=== PATIENT | female | born 1930 | race Caucasian/White ===

== ENCOUNTER → 2016-08-31 | Outpatient (CLI) | payer MEDICARE ==
[~2016-08-31] MED LIST: ACYCLOVIR800 MG PO; ADVAIR 250/501 EA INH; ALBUTEROL 3 ML 33 ML INH; ALBUTEROL0.09 MG/A2 IH; ALBUTEROL2.5 MG/0.5 INH; ASPIRIN ADULT L81 M2 PO; ASPIRIN NON-IR325 MG PO; ATROVENT I0.5 MG/2.5 INH; BACTRIM DS 8001 TA1 PO; BREO ELLIPTA 21 EACH IH; BUMETANIDE0.5 MG PO; BUMETANIDE1 MG PO; BUMEX1 MG PO; BUMEX2.5 MG/10 PO; CARDIZEM CD120 M2 PO; CARDIZEM120 MG PO; CIPRO250 MG PO; CIPROFLOXACIN500 MG PO; CORDROL20 MG PO; COREG12.5 MG PO; COREG3.125 MG PO; COREG6.25 MG PO; COUMADIN2.5 M1 PO; COUMADIN5 M2 PO; COZAAR100 MG PO; COZAAR50 M1 PO; D-1000 185 MG-11 TAB PO; DIFLUCAN50 MG PO; DOXYCYCLINE100 M3 PO; DOXYCYCLINE100 M4 PO; ELIQUIS5 M1 PO; Ecotrin325 MG PO; FLAXSEED OIL1 CAP; HYDROCHLOROTHIA25 MG; HYDROCODONE BIT1 T11 PO; KEFLEX500 MG PO; LASIX40 MG PO; LOPRESSOR100 MG PO; LORATADINE10 MG PO; MACROBID100 M1 PO; MAGNESIUM500 MG PO; NASONEX0.05 MG/AC NAS; NEURONTIN300 MG PO; NORVASC10 MG PO; OMEGA 31000 MG PO; OMEGA-3 FISH1000 M1 PO; PREDNICOT10 MG PO; PROPAFENONE HC150 MG PO; RYTHMOL150 M1 PO; SEPTRA DS 800 M1 TAB PO; TAGAMET300 MG PO; TOPROL-XL200 MG PO; ULTRAM50 MG PO; VIBRAMYCIN100 MG PO; VITAMIN D PO; VITAMIN D-32000 UNI1 PO; VITAMIN D31000 IU PO; XANAX PO; ZANTAC 150150 MG PO; ZITHROMAX250 MG PO; ZOFRAN4 MG PO; ZOLOFT25 MG PO; ZOVIRAX800 MG PO; Zofran4 MG PO; [UNRECOGNIZED DRUG - OTHER] INH
[2016-08-31 14:38] LABS: INTERNATIONAL NORM RATIO 2.3 (2.0-3.5); PROTHROMBIN TIME 26.2 SECONDS (9.0-12.4)
== END | disposition home or self-care (01) ==
LOC: LAB 13:35
PROVIDERS: Family Medicine
DX: I48.91 Unspecified atrial fibrillation (principal); Z79.01 Long term (current) use of anticoagulants

== ENCOUNTER → 2016-11-07 | Outpatient (CLI) | payer MEDICARE ==
[2016-11-07 10:40] LABS: BILIRUBIN NEGATIVE (NEGATIVE); BLOOD NEGATIVE (NEGATIVE); CLARITY SL CLOUDY (CLEAR); COLOR YELLOW (YELLOW); GLUCOSE NEGATIVE (NEGATIVE); KETONE NEGATIVE (NEGATIVE); LEUKO ESTERASE 2+ (NEGATIVE); NITRITE NEGATIVE (NEGATIVE); PH 5.5 (5.0-9.0); PROTEIN NEGATIVE (NEGATIVE); UROBILINOGEN 0.2 E.U./dl (0.2-1.0)
[2016-11-07 10:47] LABS: BASO % 0.5 % (0.0-1.0); EOS # 0.4 10*3/uL (0.0-0.4); EOS % 5.3 % (1.0-4.0); HEMATOCRIT 36.9 % (37.0-47.0); LYMPH # 2.2 10*3/uL (1.3-4.4); LYMPH % 32.4 % (27.0-41.0); MEAN CELL VOLUME 88.9 fl (81.0-99.0); MEAN CORPUSCULAR HGB 28.9 pg (27.0-31.0); MEAN CORPUSCULAR HGB CONC 32.5 g/dl (33.0-37.0); MEAN PLATELET VOLUME 10.4 fl (9.6-12.3); MONO # 0.8 10*3/uL (0.1-1.0); MONO % 11.5 % (3.0-9.0); NEUT # 3.3 10*3/uL (2.3-7.9); NEUT % 50.1 % (47.0-73.0); PLATELET COUNT AUTOMATED 245 10*3/uL (130-400); RED BLOOD COUNT 4.15 10*6/uL (4.10-5.10); WHITE BLOOD COUNT 6.6 10*3/uL (4.8-10.8)
[2016-11-07 10:49] LABS: URINE TP/CRE RATIO 0.1 (<0.21)
[2016-11-07 11:08] LABS: ALBUMIN 3.3 gm/dl (3.1-4.5); BACTERIA 2+; EPITHELIAL CELLS 15-20; MAGNESIUM 2.1 mg/dL (1.5-2.1); PHOSPHOROUS 2.1 mg/dL (2.5-4.9); POTASSIUM 4.4 mmol/L (3.5-5.1); WBC 16-20 wbc/hpf (0-5)
[2016-11-07 11:51] LABS: PTH INTACT 129.4 pg/mL (14.0-72.0); VITAMIN D, 25-HYDROXY 28.6 ng/mL (30-100)
== END | disposition home or self-care (01) ==
LOC: LAB 10:11
PROVIDERS: Internal Medicine Nephrology
DX: N18.4 Chronic kidney disease, stage 4 (severe) (principal); E55.9 Vitamin D deficiency, unspecified; N25.81 Secondary hyperparathyroidism of renal origin

== ENCOUNTER 2016-12-17 16:53 | Emergency (ER) | payer MEDICARE ==
[~2016-12-17] VITALS: Ht 152.4 cm; Wt 69.4 kg
[2016-12-17 17:22] LABS: BILIRUBIN NEGATIVE (NEGATIVE); BLOOD 3+ (NEGATIVE); CLARITY CLEAR (CLEAR); COLOR YELLOW (YELLOW); GLUCOSE NEGATIVE (NEGATIVE); KETONE NEGATIVE (NEGATIVE); LEUKO ESTERASE 2+ (NEGATIVE); NITRITE NEGATIVE (NEGATIVE); PH 5.5 (5.0-9.0); PROTEIN NEGATIVE (NEGATIVE); SPECIFIC GRAVITY <= 1.005 (1.005-1.030); UROBILINOGEN 0.2 E.U./dl (0.2-1.0)
[2016-12-17 17:28] LABS: BACTERIA 1+; EPITHELIAL CELLS 16-20; RBC 16-20 rbc/hpf (0-2); URINE REFLEX COMMENT YES (NO)
[2016-12-17 17:35] LABS: BASO # 0.1 10*3/uL (0.0-0.1); BASO % 0.7 % (0.0-1.0); EOS # 0.2 10*3/uL (0.0-0.4); EOS % 2.3 % (1.0-4.0); HEMATOCRIT 36.9 % (37.0-47.0); HEMOGLOBIN 12.2 g/dl (12.0-16.0); LYMPH # 2.2 10*3/uL (1.3-4.4); LYMPH % 26.1 % (27.0-41.0); MEAN CELL VOLUME 88.5 fl (81.0-99.0); MEAN CORPUSCULAR HGB 29.3 pg (27.0-31.0); MEAN CORPUSCULAR HGB CONC 33.1 g/dl (33.0-37.0); MEAN PLATELET VOLUME 10.3 fl (9.6-12.3); MONO # 0.8 10*3/uL (0.1-1.0); MONO % 9.7 % (3.0-9.0); NEUT # 5.1 10*3/uL (2.3-7.9); NEUT % 61.1 % (47.0-73.0); PLATELET COUNT AUTOMATED 231 10*3/uL (130-400); RED BLOOD COUNT 4.17 10*6/uL (4.10-5.10); RED CELL DISTRI WIDTH 14.2 % (0-14.5); WHITE BLOOD COUNT 8.4 10*3/uL (4.8-10.8)
[2016-12-17 17:42] LABS: INTERNATIONAL NORM RATIO 2.2 (2.0-3.5)
[2016-12-17 17:50] LABS: ALBUMIN 3.6 gm/dl (3.1-4.5); BILIRUBIN, TOTAL 0.4 mg/dl (0.2-1.0); POTASSIUM 4.6 mmol/L (3.5-5.1); TOTAL PROTEIN 7.2 gm/dL (6.4-8.2)
[2016-12-17] MEDS ORDERED: AMINOPHYLLIN200 MG PO (18:34)
[2016-12-17] MEDS ORDERED: DITROPAN XL5 MG PO (18:34)
== END 2016-12-17 19:04 | disposition home or self-care (01) ==
LOC: ED 16:53
PROVIDERS: Registered Nurse
DX: N30.00 Acute cystitis without hematuria (principal); N18.4 Chronic kidney disease, stage 4 (severe); Z90.49 Acquired absence of other specified parts of digestive tract; Z79.01 Long term (current) use of anticoagulants; Z79.82 Long term (current) use of aspirin; Z79.899 Other long term (current) drug therapy; Z88.2 Allergy status to sulfonamides; Z88.6 Allergy status to analgesic agent

== ENCOUNTER → 2016-12-23 | Outpatient (CLI) | payer MEDICARE ==
[~2016-12-23] MED LIST changes: +AMINOPHYLLIN200 MG PO; +DITROPAN XL5 MG PO
[2016-12-23 10:41] LABS: INTERNATIONAL NORM RATIO 1.8 (2.0-3.5); PROTHROMBIN TIME 19.9 SECONDS (9.0-12.4)
== END | disposition home or self-care (01) ==
LOC: LAB 09:33
PROVIDERS: Family Medicine
DX: I48.91 Unspecified atrial fibrillation (principal); Z79.01 Long term (current) use of anticoagulants

== ENCOUNTER 2017-01-06 06:13 | Emergency (ER) | payer MEDICARE ==
[~2017-01-06] VITALS: Ht 152.4 cm; Wt 68.0 kg
[2017-01-06 06:38] LABS: BASO # 0.1 10*3/uL (0.0-0.1); BASO % 0.9 % (0.0-1.0); EOS # 0.2 10*3/uL (0.0-0.4); EOS % 4.1 % (1.0-4.0); LYMPH # 2.1 10*3/uL (1.3-4.4); LYMPH % 35.8 % (27.0-41.0); MEAN CELL VOLUME 89.8 fl (81.0-99.0); MEAN CORPUSCULAR HGB 29.1 pg (27.0-31.0); MEAN CORPUSCULAR HGB CONC 32.4 g/dl (33.0-37.0); MEAN PLATELET VOLUME 10.2 fl (9.6-12.3); MONO # 0.5 10*3/uL (0.1-1.0); MONO % 9.1 % (3.0-9.0); NEUT # 2.9 10*3/uL (2.3-7.9); NEUT % 49.8 % (47.0-73.0); PLATELET COUNT AUTOMATED 222 10*3/uL (130-400); RED BLOOD COUNT 4.12 10*6/uL (4.10-5.10); RED CELL DISTRI WIDTH 13.9 % (0-14.5); WHITE BLOOD COUNT 5.8 10*3/uL (4.8-10.8)
[2017-01-06 06:48] LABS: INTERNATIONAL NORM RATIO 2.1 (2.0-3.5); PROTHROMBIN TIME 23.8 SECONDS (9.0-12.4)
[2017-01-06 06:59] LABS: ALBUMIN 3.2 gm/dl (3.1-4.5); ALKALINE PHOSPHATASE 159 U/L (45-117); BILIRUBIN, TOTAL 0.5 mg/dl (0.2-1.0); BUN 25 mg/dl (7-24); C-REACTIVE PROTEIN 0.68 MG/DL (0-0.3); CARBON DIOXIDE 24 mmol/L (21-32); CHLORIDE 106 mmol/L (98-107); EST GLOM FILT AFRICAN AMERICAN 28 ml/min; GLUCOSE 91 mg/dL (65-99); MAGNESIUM 2.2 mg/dL (1.5-2.1); SGOT/AST 25 IU/L (3-35); SGPT/ALT 21 U/L (12-78); SODIUM 140 mmol/L (136-145); TOTAL PROTEIN 6.8 gm/dL (6.4-8.2)
[2017-01-06 07:05] LABS: TROPONIN I < 0.015 ng/ml (<0.045)
== END 2017-01-06 10:08 | disposition home or self-care (01) ==
LOC: ED 06:13
PROVIDERS: Student in an Organized Health Care Education/Training Program
DX: F41.9 Anxiety disorder, unspecified (principal); I48.91 Unspecified atrial fibrillation; I13.0 Hypertensive heart and chronic kidney disease with heart failure and stage 1 through stage 4 chronic kidney disease, or unspecified chronic kidney disease; N18.4 Chronic kidney disease, stage 4 (severe); I50.9 Heart failure, unspecified; Z90.49 Acquired absence of other specified parts of digestive tract; Z90.710 Acquired absence of both cervix and uterus; Z98.890 Other specified postprocedural states; Z79.899 Other long term (current) drug therapy; Z79.82 Long term (current) use of aspirin; Z88.2 Allergy status to sulfonamides; Z88.5 Allergy status to narcotic agent; Z88.8 Allergy status to other drugs, medicaments and biological substances

== ENCOUNTER → 2017-02-15 | Outpatient (CLI) | payer MEDICARE ==
[2017-02-15 12:31] LABS: INTERNATIONAL NORM RATIO 2.6 (2.0-3.5)
== END | disposition home or self-care (01) ==
LOC: LAB 11:01
PROVIDERS: Family Medicine
DX: I48.91 Unspecified atrial fibrillation (principal); Z79.01 Long term (current) use of anticoagulants

== ENCOUNTER → 2017-03-19 | Outpatient (CLI) | payer MEDICARE ==
[2017-03-19 14:54] LABS: BILIRUBIN NEGATIVE (NEGATIVE); BLOOD NEGATIVE (NEGATIVE); CLARITY CLEAR (CLEAR); COLOR YELLOW (YELLOW); GLUCOSE NEGATIVE (NEGATIVE); KETONE NEGATIVE (NEGATIVE); LEUKO ESTERASE 1+ (NEGATIVE); NITRITE NEGATIVE (NEGATIVE); PH 5.5 (5.0-9.0); UROBILINOGEN 0.2 E.U./dl (0.2-1.0)
[2017-03-19 14:59] LABS: BASO # 0.1 10*3/uL (0.0-0.1); BASO % 0.7 % (0.0-1.0); EOS # 0.2 10*3/uL (0.0-0.4); EOS % 2.9 % (1.0-4.0); HEMATOCRIT 36.5 % (37.0-47.0); HEMOGLOBIN 12.2 g/dl (12.0-16.0); LYMPH # 2.8 10*3/uL (1.3-4.4); LYMPH % 37.8 % (27.0-41.0); MEAN CELL VOLUME 89.9 fl (81.0-99.0); MEAN CORPUSCULAR HGB CONC 33.4 g/dl (33.0-37.0); MEAN PLATELET VOLUME 10.3 fl (9.6-12.3); MONO # 0.7 10*3/uL (0.1-1.0); MONO % 9.3 % (3.0-9.0); NEUT # 3.7 10*3/uL (2.3-7.9); NEUT % 48.9 % (47.0-73.0); PLATELET COUNT AUTOMATED 281 10*3/uL (130-400); RED BLOOD COUNT 4.06 10*6/uL (4.10-5.10); RED CELL DISTRI WIDTH 13.6 % (0-14.5); WHITE BLOOD COUNT 7.5 10*3/uL (4.8-10.8)
[2017-03-19 15:06] LABS: BACTERIA 2+; RBC 0-2 rbc/hpf (0-2); WBC 16-20 wbc/hpf (0-5)
[2017-03-19 15:27] LABS: ALBUMIN 3.3 gm/dl (3.1-4.5); CREATININE 2.13 mg/dL (0.55-1.02); MAGNESIUM 2.3 mg/dL (1.5-2.1); PHOSPHOROUS 2.9 mg/dL (2.5-4.9); POTASSIUM 4.5 mmol/L (3.5-5.1); URIC ACID 10.8 mg/dL (2.6-6.0)
[2017-03-19 16:05] LABS: PTH INTACT 117.4 pg/mL (14.0-72.0); VITAMIN D, 25-HYDROXY 30.3 ng/mL (30-100)
== END | disposition home or self-care (01) ==
LOC: LAB 14:25
PROVIDERS: Internal Medicine Nephrology
DX: N18.4 Chronic kidney disease, stage 4 (severe) (principal); E55.9 Vitamin D deficiency, unspecified; N25.81 Secondary hyperparathyroidism of renal origin; M10.09 Idiopathic gout, multiple sites

== ENCOUNTER → 2017-07-23 | Outpatient (CLI) | payer MEDICARE ==
[2017-07-23 16:05] LABS: BASO % 0.5 % (0.0-1.0); EOS # 0.2 10*3/uL (0.0-0.4); EOS % 3.1 % (1.0-4.0); HEMATOCRIT 37.2 % (37.0-47.0); LYMPH # 2.7 10*3/uL (1.3-4.4); MEAN CELL VOLUME 89.4 fl (81.0-99.0); MEAN CORPUSCULAR HGB 28.8 pg (27.0-31.0); MEAN CORPUSCULAR HGB CONC 32.3 g/dl (33.0-37.0); MEAN PLATELET VOLUME 10.7 fl (9.6-12.3); MONO # 0.9 10*3/uL (0.1-1.0); MONO % 11.4 % (3.0-9.0); NEUT # 3.8 10*3/uL (2.3-7.9); NEUT % 49.6 % (47.0-73.0); PLATELET COUNT AUTOMATED 263 10*3/uL (130-400); RED BLOOD COUNT 4.16 10*6/uL (4.10-5.10); RED CELL DISTRI WIDTH 13.8 % (0-14.5); WHITE BLOOD COUNT 7.6 10*3/uL (4.8-10.8)
[2017-07-23 16:26] LABS: ALBUMIN 3.5 gm/dl (3.1-4.5); CREATININE 2.43 mg/dL (0.55-1.02); PHOSPHOROUS 3.1 mg/dL (2.5-4.9); POTASSIUM 4.2 mmol/L (3.5-5.1); URIC ACID 10.4 mg/dL (2.6-6.0)
[2017-07-23 16:32] LABS: BILIRUBIN NEGATIVE (NEGATIVE); BLOOD TRACE-LYSED (NEGATIVE); CLARITY CLOUDY (CLEAR); COLOR YELLOW (YELLOW); GLUCOSE NEGATIVE (NEGATIVE); KETONE NEGATIVE (NEGATIVE); LEUKO ESTERASE 3+ (NEGATIVE); NITRITE NEGATIVE (NEGATIVE); PH 5.5 (5.0-9.0); SPECIFIC GRAVITY 1.015 (1.005-1.030); UROBILINOGEN 0.2 E.U./dl (0.2-1.0)
[2017-07-23 16:37] LABS: PTH INTACT 140.4 pg/mL (14.0-72.0); VITAMIN D, 25-HYDROXY 30.7 ng/mL (30-100)
[2017-07-23 16:58] LABS: BACTERIA 3+; EPITHELIAL CELLS 0-2; WBC 31-40 wbc/hpf (0-5)
== END | disposition home or self-care (01) ==
LOC: LAB 15:12
PROVIDERS: Internal Medicine Nephrology
DX: N18.4 Chronic kidney disease, stage 4 (severe) (principal); E55.9 Vitamin D deficiency, unspecified; N25.81 Secondary hyperparathyroidism of renal origin; M10.09 Idiopathic gout, multiple sites

== ENCOUNTER → 2017-10-29 | Outpatient (CLI) | payer MEDICARE | END | disposition home or self-care (01) | LOC: RAD 11:08 | DX: M16.0 Bilateral primary osteoarthritis of hip (principal) ==

== ENCOUNTER → 2017-11-20 | Outpatient (CLI) | payer MEDICARE ==
[2017-11-20 11:26] LABS: BASO # 0.1 10*3/uL (0.0-0.1); BASO % 0.8 % (0.0-1.0); BILIRUBIN NEGATIVE (NEGATIVE); BLOOD NEGATIVE (NEGATIVE); CLARITY CLEAR (CLEAR); COLOR YELLOW (YELLOW); EOS # 0.2 10*3/uL (0.0-0.4); EOS % 2.6 % (1.0-4.0); GLUCOSE NEGATIVE (NEGATIVE); HEMATOCRIT 36.3 % (37.0-47.0); HEMOGLOBIN 11.6 g/dl (12.0-16.0); KETONE NEGATIVE (NEGATIVE); LEUKO ESTERASE TRACE (NEGATIVE); LYMPH # 2.6 10*3/uL (1.3-4.4); LYMPH % 39.5 % (27.0-41.0); MEAN CELL VOLUME 91.2 fl (81.0-99.0); MEAN CORPUSCULAR HGB 29.1 pg (27.0-31.0); MEAN PLATELET VOLUME 10.4 fl (9.6-12.3); MONO # 0.7 10*3/uL (0.1-1.0); MONO % 11.2 % (3.0-9.0); NEUT % 45.4 % (47.0-73.0); NITRITE NEGATIVE (NEGATIVE); PH 5.5 (5.0-9.0); PLATELET COUNT AUTOMATED 226 10*3/uL (130-400); RED BLOOD COUNT 3.98 10*6/uL (4.10-5.10); RED CELL DISTRI WIDTH 14.1 % (0-14.5); UROBILINOGEN 0.2 E.U./dl (0.2-1.0); WHITE BLOOD COUNT 6.5 10*3/uL (4.8-10.8)
[2017-11-20 11:42] LABS: URINE CREATININE RANDOM 26.5 mg/dL
[2017-11-20 12:03] LABS: ALBUMIN 3.6 gm/dl (3.1-4.5); CREATININE 2.36 mg/dL (0.55-1.02); PHOSPHOROUS 2.9 mg/dL (2.5-4.9); POTASSIUM 4.4 mmol/L (3.5-5.1); URIC ACID 8.4 mg/dL (2.6-6.0)
[2017-11-20 12:07] LABS: BACTERIA 1+; EPITHELIAL CELLS 16-20
[2017-11-20 12:58] LABS: PTH INTACT 118.2 pg/mL (14.0-72.0); VITAMIN D, 25-HYDROXY 38.1 ng/mL (30-100)
== END | disposition home or self-care (01) ==
LOC: LAB 10:57
PROVIDERS: Internal Medicine Nephrology
DX: N18.4 Chronic kidney disease, stage 4 (severe) (principal); E55.9 Vitamin D deficiency, unspecified; N25.81 Secondary hyperparathyroidism of renal origin; M10.09 Idiopathic gout, multiple sites

== ENCOUNTER → 2018-03-19 | Outpatient (CLI) | payer MEDICARE ==
[~2018-03-19] MED LIST changes: +CYCLOBENZAPRINE5 M3 PO
[2018-03-19 10:47] LABS: HEMATOCRIT 36.9 % (37.0-47.0); HEMOGLOBIN 11.8 g/dl (12.0-16.0); MEAN CELL VOLUME 91.1 fl (81.0-99.0); MEAN CORPUSCULAR HGB 29.1 pg (27.0-31.0); MEAN PLATELET VOLUME 10.6 fl (9.6-12.3); RED BLOOD COUNT 4.05 10*6/uL (4.10-5.10); RED CELL DISTRI WIDTH 14.2 % (0-14.5); WHITE BLOOD COUNT 8.8 10*3/uL (4.8-10.8)
[2018-03-19 11:21] LABS: ALBUMIN 3.5 gm/dl (3.1-4.5); CREATININE 2.35 mg/dL (0.55-1.02); POTASSIUM 4.7 mmol/L (3.5-5.1); TOTAL PROTEIN 7.4 gm/dL (6.4-8.2)
== END | disposition home or self-care (01) ==
LOC: LAB 10:05
PROVIDERS: Family Medicine
DX: I10 Essential (primary) hypertension (principal); E78.00 Pure hypercholesterolemia, unspecified; E55.9 Vitamin D deficiency, unspecified

== ENCOUNTER → 2018-03-25 | Outpatient (CLI) | payer MEDICARE ==
[2018-03-25 13:04] LABS: BASO # 0.1 10*3/uL (0.0-0.1); BASO % 0.7 % (0.0-1.0); EOS # 0.2 10*3/uL (0.0-0.4); HEMATOCRIT 35.9 % (37.0-47.0); HEMOGLOBIN 11.7 g/dl (12.0-16.0); LYMPH # 2.6 10*3/uL (1.3-4.4); LYMPH % 38.6 % (27.0-41.0); MEAN CELL VOLUME 91.8 fl (81.0-99.0); MEAN CORPUSCULAR HGB 29.9 pg (27.0-31.0); MEAN CORPUSCULAR HGB CONC 32.6 g/dl (33.0-37.0); MEAN PLATELET VOLUME 10.8 fl (9.6-12.3); MONO # 0.5 10*3/uL (0.1-1.0); MONO % 8.1 % (3.0-9.0); NEUT # 3.3 10*3/uL (2.3-7.9); NEUT % 49.3 % (47.0-73.0); PLATELET COUNT AUTOMATED 261 10*3/uL (130-400); RED BLOOD COUNT 3.91 10*6/uL (4.10-5.10); WHITE BLOOD COUNT 6.7 10*3/uL (4.8-10.8)
[2018-03-25 13:04] LABS: BILIRUBIN NEGATIVE (NEGATIVE); BLOOD NEGATIVE (NEGATIVE); CLARITY CLEAR (CLEAR); COLOR YELLOW (YELLOW); GLUCOSE NEGATIVE (NEGATIVE); KETONE NEGATIVE (NEGATIVE); LEUKO ESTERASE 1+ (NEGATIVE); NITRITE NEGATIVE (NEGATIVE); UROBILINOGEN 0.2 E.U./dl (0.2-1.0)
[2018-03-25 13:09] LABS: BACTERIA 2+; RBC 0-2 rbc/hpf (0-2)
[2018-03-25 13:26] LABS: ALBUMIN 3.4 gm/dl (3.1-4.5); CREATININE 2.54 mg/dL (0.55-1.02); PHOSPHOROUS 2.5 mg/dL (2.5-4.9); POTASSIUM 4.4 mmol/L (3.5-5.1); URIC ACID 10.7 mg/dL (2.6-6.0)
[2018-03-25 15:21] LABS: PTH INTACT 143.9 pg/mL (18.5-88.0); VITAMIN D, 25-HYDROXY 40.9 ng/mL (30-100)
== END | disposition home or self-care (01) ==
LOC: LAB 11:53
PROVIDERS: Internal Medicine Nephrology
DX: E55.9 Vitamin D deficiency, unspecified (principal); N18.4 Chronic kidney disease, stage 4 (severe); N25.81 Secondary hyperparathyroidism of renal origin; M10.09 Idiopathic gout, multiple sites

== ENCOUNTER → 2018-05-03 | Outpatient (CLI) | payer MEDICARE | END | disposition home or self-care (01) | LOC: RAD 10:24 | DX: S60.211A Contusion of right wrist, initial encounter (principal); M19.031 Primary osteoarthritis, right wrist; M25.431 Effusion, right wrist; X58.XXXA Exposure to other specified factors, initial encounter; Y93.89 Activity, other specified; Y92.89 Other specified places as the place of occurrence of the external cause; Y99.8 Other external cause status ==

== ENCOUNTER 2018-12-30 20:06 | Inpatient (IN) | payer MEDICARE ==
[~2018-12-30] VITALS: Ht 152.4 cm; Wt 80.4 kg
--- NOTE | ~2018-12-30 | PR ---
[place], [place] PROGRESS NOTE NAME: [facility] [id number] UNIT #: [id number] ROOM: 505 DOCTOR: TY WATERS MD BIRTHDATE: [birth year] DOS: 01/04/2019 SUBJECTIVE: The patient's cough has started improving. OBJECTIVE: VITAL SIGNS: Blood pressure 138/66, heart rate of 88 beats per minute, breathing 18-22 times per minute, temperature 98 degrees Fahrenheit. GENERAL APPEARANCE: The patient is alert and oriented x 3, in no visible distress. HEENT AND NECK: Exam within normal limits. CARDIOVASCULAR SYSTEM: Heart rate is regular in rate and rhythm. S1 and S2 normally audible. LUNGS: Clear to auscultation. ABDOMEN: Soft, nontender. No obvious organomegaly. Bowel sounds are present. EXTREMITIES: Without significant cyanosis or edema. IMPRESSION AND PLAN: 1. The patient with community-acquired pneumonia, being treated with antibiotics and bronchodilators status post bronchoscopy with sputum cultures growing normal castillo. 2. Chronic atrial fibrillation with controlled heart rates. The patient anticoagulated with Coumadin. Rapid heart rate controlled with Cardizem. 3. Atrial fibrillation with rapid ventricular response, controlled with Cardizem. She is on Coreg. 4. Generalized weakness and adult failure to thrive. The patient working with physical therapy. 5. Acute exacerbation of chronic obstructive pulmonary disease, gradually improving with treatment with bronchodilators and antibiotic. TY WATERS MD CM:PNTRANS [id number] TY WATERS MD 01/05/19 0119 interface
--- NOTE | ~2018-12-30 | CON ---
[place], [place] REPORT OF CONSULTATION [id number] UN[facility] #: [id number] ROOM: 505 DOCTOR: SAM WALSH MD BIRTHDATE: [birth year] DOS: 01/03/2019 CARDIOLOGY CONSULTATION REASON FOR CONSULTATION: Tachyarrhythmia with history of atrial fibrillation. HISTORY OF PRESENT ILLNESS: The patient is an 88-year-old patient with history of chronic atrial fibrillation, diastolic heart failure, chronic kidney disease, hypertension, was admitted for progressive shortness of breath and cough. She noted to have bilateral pneumonia and Pulmonary was consulted. Eventually, she underwent a bronchoscopy. Today, the patient developed tachycardia, hence Cardiology consulted. She has history of chronic atrial fibrillation, was on Coumadin. At the time of examination, the patient is alert, in comfort, no acute distress, feeling better. Shortness of breath is better. Denies any chest pain or palpitation, no dizziness, no PND, no orthopnea. No nausea, vomiting, diarrhea. No fever and chills. She has occasional cough, but no hemoptysis. No bladder or bowel symptoms, no genitourinary symptoms, no neurologic symptoms. REVIEW OF SYSTEMS: Review of 10 systems negative except as mentioned above. PAST MEDICAL HISTORY: 1. History of atrial fibrillation. 2. Chronic diastolic heart failure. 3. Hypertension. 4. Chronic kidney disease. 5. Asthma. 6. Chronic obstructive pulmonary disease. 7. Coronary artery disease. PAST SURGICAL HISTORY: History of appendicectomy, hysterectomy, bilateral breast surgeries and partial bowel resection. FAMILY HISTORY: Nil significant due to her age, but history of cancer and hypertension in her parents. HOME MEDICATIONS: Reviewed. ALLERGIES: Reviewed. PHYSICAL EXAMINATION: VITAL SIGNS: Blood pressure 152/58, pulse was 84, respiratory rate 16, weight 74 kg, BMI 31.9. GENERAL: Alert, comfortable, in no acute distress. HEAD AND NECK: Supple, no distended neck veins. No carotid bruit. Tongue was moist and pharynx clear. CHEST: Symmetrical, nontender. LUNGS: A few scattered rhonchi, but fair air entry bilaterally. HEART: Regular rhythm, no S3, no palpable thrills. Grade 1/6 systolic murmur. ABDOMEN: Benign, nontender. Bowel sounds normal. [place], [place] REPORT OF CONSULTATION NAME: ZENA CABRERA UNIT #: [id number] ROOM: [facility] DOCTOR: JILLIAN MCGHEE,SAM BIRTHDATE: [birth year] EXTREMITIES: Showed no edema. Distal pulses palpable. SKIN: Warm and dry. No cyanosis, no clubbing. RECTAL: Deferred. GENITOURINARY: Deferred. NEUROLOGIC: The patient is alert with no focal neurologic deficit. PSYCHIATRIC: The patient is alert with good mood and affect. REVIEW OF THE DIAGNOSTIC TESTING: EKG rhythm strips and labs reviewed. EKG showed narrow complex regular tachycardia suggestive of atrial tachycardia or atrial flutter with a 2:1 block. WBC count is 28,700, hemoglobin 11.5, platelet 139,000. Potassium 4.2, BUN 32, creatinine 1.74. INR 2.7. Cardiac troponins are negative. Echo from 04/2016 showed EF 70%, diastolic dysfunction. IMPRESSION: 1. Supraventricular tachycardia appears to be atrial tachycardia versus atrial flutter with a 2:1 block, resolved. 2. History of paroxysmal atrial fibrillation. 3. Bilateral pneumonia. 4. Sepsis. 5. Hypertension. 6. Chronic diastolic heart failure. 7. Coronary artery disease. 8. Acute on chronic kidney disease. RECOMMENDATIONS: 1. Increase her Coreg to 6.25 mg twice daily and watch her heart rate and blood pressures. 2. Wean her IV Cardizem and discontinue. 3. Check 2D echo for LV function and valvular function. 4. The patient was seen by Dr. Pennington in the past, but she has not seen him for 2-3 years. She is agreeable to follow up with [facility] in the future. 5. No family at bedside at the time of my examination. 6. Continue rest of the cardiac medications including her Coumadin. SAM WALSH MD CM:CONSTR:REPORT OF CONSULTATION 33 01/04/19 0001 interface
--- NOTE | ~2018-12-30 | PR ---
[place], [place] PROGRESS NOTE [id number] UNIT #: [id number] ROOM: 505 DOCTOR: TY WATERS MD BIRTHDATE: [birth year] DOS: 01/01/2019 SUBJECTIVE: The patient's cough has slightly improved. OBJECTIVE: VITAL SIGNS: Blood pressure 150/62, heart rate of 96 beats per minute, breathing 18 times per minute, temperature 98.1 degrees Fahrenheit. GENERAL APPEARANCE: The patient is alert and oriented x 3, in no visible distress. HEENT AND NECK: Exam within normal limits. CARDIOVASCULAR SYSTEM: Heart rate is regular in rate and rhythm. S1 and S2 normally audible. LUNGS: Basal crackles on lung auscultation bilaterally. ABDOMEN: Soft, nontender. No obvious organomegaly. Bowel sounds are present. EXTREMITIES: Without significant cyanosis or edema. IMPRESSION: 1. The patient with bilateral lower lobe pneumonia, being taken for a bronchoscopy by Dr. Guzman tomorrow. 2. Generalized weakness, adult failure to thrive. The patient is working with physical therapy. 3. Chronic atrial fibrillation. The patient is anticoagulated with Coumadin and therapeutic. 4. Benign essential hypertension. The patient remains on losartan. Blood pressure is being treated and monitored and staying normal. TY WATERS MD CM:PNTRANS [id number] TY WATERS MD 01/01/19 2219 interface
--- NOTE | ~2018-12-30 | EKG ---
[place], [place] ELECTROCARDIOGRAM REPORT NAME: ZENA CABRERA UNIT #: [id number] ROOM: 505 DOCTOR: HERO DRAFT REPORT BIRTHDATE: [birth year] [facility] Test Date: 2018-12-30 Test Time: 20:42:23 Pat Name: ZENA CABRERA Department: Room: 505 Gender: F Bundler: : 1930 Requested By: TULIO BARBER Order Number: [id number] Reading MD: Benjamín Paige Measurements Intervals [place] Rate: 97 P: 62 SC: 193 QRS: 82 QRSD: 102 T: 47 QT: 376 QTc: 478 Interpretive Statements Sinus rhythm Borderline right axis deviation Baseline wander in lead(s) V6 Electronically Signed On 12-31-2018 7:48:59 PDT by Benjamín Paige CM:EKGRPT:ELECTROCARDIOGRAM REPORT [id number] TULIO BAUTISTA DRAFT REPORT TULIO BARBER DO
--- NOTE | ~2018-12-30 | EKG ---
[place], [place] ELECTROCARDIOGRAM REPORT NAME: ZENA CABRERA UNIT #: [id number] ROOM: 505 DOCTOR: EPIPHANY DRAFT REPORT BIRTHDATE: [birth year] [facility] Test Date: 2019-01-01 Test Time: 09:41:07 Pat Name: ZENA CABRERA Department: Room: [facility] 1 Gender: F Multifocal Button Generator: Mandy Lantigua : 1930 Requested By: HERMILA HARMAN Order Number: [id number] Reading MD: Hermila Guzman MD Measurements Intervals [place] Rate: 113 P: 50 OK: 131 QRS: 76 QRSD: 106 T: -24 QT: 332 QTc: 456 Interpretive Statements Sinus tachycardia Atrial premature complexes Borderline repolarization abnormality Compared to ECG 12/30/2018 20:42:23 Atrial premature complex(es) now present Sinus rhythm no longer present Electronically Signed On 01-04-2019 7:45:06 PDT by Hermila Guzman MD CM:EKGRPT:ELECTROCARDIOGRAM REPORT 0745 HERMILA HARMAN MD EPIPHANY DRAFT REPORT HERMILA HARMAN MD
--- NOTE | ~2018-12-30 | PR ---
[place], [place] PROGRESS NOTE NAME: ZENA CABRERA [facility] #: [id number] UNIT #: [id number] ROOM: 505 DOCTOR: TY WATERS MD BIRTHDATE: [birth year] DOS: 01/02/2019 SUBJECTIVE: The patient is improving after bronchoscopy, but she still has significant cough. OBJECTIVE: GENERAL APPEARANCE: The patient is alert and oriented x 3, in no visible distress. VITAL SIGNS: Blood pressure 132/72, heart rate 97 beats per minute, breathing 18 times per minute, temperature 98 degrees Fahrenheit. HEENT AND NECK: Exam within normal limits. CARDIOVASCULAR SYSTEM: Heart rate is regular in rate and rhythm. S1 and S2 normally audible. LUNGS: Expiratory wheezing scattered all over her lungs. ABDOMEN: Soft, nontender. No obvious organomegaly. Bowel sounds are present. EXTREMITIES: Without significant cyanosis or edema. IMPRESSION: 1. Acute exacerbation of chronic obstructive pulmonary disease, being treated with bronchodilators, antibiotic. 2. Bilateral lower lobe pneumonia with scarring of the lungs, status post bronchoscopy by Dr. Megan nails. 3. Benign essential hypertension, being treated with losartan. Blood pressure is being monitored and staying normal. 4. Chronic atrial fibrillation. The patient anticoagulated with Coumadin. INR therapeutic at 2.2. 5. Blood cultures have been negative so far. 6. Generalized weakness, adult failure to thrive. The patient working with Physical Therapy. TY WATERS MD CM:PNTRANS [id number] TY WATERS MD 01/02/19 1680 interface
--- NOTE | ~2018-12-30 | ED ---
[place], [place] EMERGENCY DEPARTMENT REPORT NAME: ZENA CABRERA UNIT #: [id number] PT STATUS: DIS IN DOCTOR: TOMMY HARMAN MD,[facility] ROOM #: 505 DOS: 01/01/2019 PULMONARY CONSULTATION, EVALUATION AND MANAGEMENT CONSULTATION REQUESTED BY: Dr. Murdock. REASON FOR CONSULTAITON: For assessment of the ongoing acute respiratory complaints. HISTORY OF PRESENT ILLNESS: This is an 88-year-old elderly female patient with past history of bronchial asthma. The patient stated that she has been told with the diagnosis of COPD recently as well. She has been traveling from [place]. The patient return to [place]. The patient stated she got off the plane and started having progressive increased of coughing, chest congestion, which worsened gradually up. The symptoms noted significant worsening prior to admission to the hospital. The cough has been noted with a small amount of sputum expectoration, most of the time was noted severe and nonproductive. She has not been able to expectorate any sputum. She does report symptoms of wheezing with that. There were no symptoms of acute chest pain stated. Shortness of breath occurred with exertion with intermittent wheezing. REVIEW OF SYSTEMS: CONSTITUTIONAL SYMPTOMS: Fatigue and tiredness noted. Denies symptoms of fever or chills. Denies any burning, redness, or tenderness. EAR, NOSE, THROAT SYMPTOMS: No sore throat, hoarseness, otalgia, postnasal drainage or epistaxis. CARDIOVASCULAR: Denies angina pain, edema, pain of the lower extremities. GASTROINTESTINAL SYMPTOMS: Dysphagia, nausea, vomiting, diarrhea, abdominal pain, hematemesis, melena, or hematochezia. SKIN: Denies abnormal lesions or rashes. CENTRAL NERVOUS SYSTEM: No dizziness, headache, diplopia, syncopal episodes. Remaining systems were reviewed with the patient, they were noted all negative. PAST MEDICAL HISTORY: 1. Permanent atrial fibrillation. 2. Congestive heart failure, diastolic dysfunction. 3. Essential hypertension. 4. Benign positional vertigo. 5. Chronic kidney disease stage 3. 6. Bronchial asthma. 7. History stated for chronic obstructive pulmonary. 8. History of coronary artery disease. SOCIAL HISTORY: Stated by the patient as she is currently , has 5 children. There were no history of alcohol, tobacco or illicit drug use stated by the patient. PAST SURGICAL HISTORY: 1. Hysterectomy. 2. Appendectomy. [place], [place] EMERGENCY DEPARTMENT REPORT NAME: ZENA CABRERA UNIT #: [id number] PT STATUS: DIS IN DOCTOR: TOMMY HARMAN MD,[facility] ROOM #: 505 3. Bilateral breast biopsy, which was benign. 4. Partial bowel resection, nonmalignant. FAMILY HISTORY: The patient reported for cancer and hypertension. CURRENT MEDICATIONS: Administered were noted as Coumadin, Bumex, Solu-Medrol 40 mg IV b.i.d., Mucinex, Coreg, propafenone, losartan, DuoNeb, Zithromax and Rocephin. ALLERGIES: 1. SULFA DRUG. 2. CODEINE. 3. QUININE. PHYSICAL EXAMINATION: GENERAL: An 88-year-old elderly female, currently noted without any acute distress. Height of 5 feet, weight 158 pounds, BMI 30.9. VITAL SIGNS: Normal temperature, respiratory rate 18-20, heart rate of 122-94, atrial fibrillation, blood pressure . Pulse oxygen saturation on 2 L nasal cannula 98% saturation on room air 97% saturation this morning also recorded. HEENT: Examination shows head was atraumatic. Eyes nonicterus. NECK: Supple. CARDIOVASCULAR: S1, S2 is audible. LUNGS: The patient noted with expiratory wheezing in the lungs bilaterally, scattered crackles of the lungs. ABDOMEN: Soft, flat, nontender, bowel sounds present. EXTREMITIES: The patient noted without any acute edema, clubbing, or cyanosis. MUSCULOSKELETAL: Without any acute deformities. CENTRAL NERVOUS SYSTEM: Cranial nerves 2-12 intact. LABORATORY DATA: CBC that was done just on 12/30/2018 noted with a WBC count normal, hemoglobin 11.7, platelet count normal, 4.9% eosinophils. PT/PTT noted as INR 2.1, PTT 32 on 12/30/2018. CMP on 12/30/2018, BUN 35, creatinine 2.31. PT/INR yesterday repeated at 2.0. The PT/INR this morning was 1.9. The chest x-ray that was personally reviewed and was noted with a small patchy area of infiltration in the lower lungs with linear atelectasis. There were no pleural fluid hyperinflated lungs noted. IMPRESSION: 1. The patient will be currently admitted to the hospital. The patient developed acute exacerbation of bronchial asthma, eosinophilia, phenotype. 2. The patient with chronic kidney disease stage 2. 3. Permanent atrial fibrillation with current acute rapid ventricular response because of current acute exacerbation of bronchial asthma. 4. The patient with chronic anticoagulation with Coumadin. 5. Basilar area of atelectasis, most likely rather than acute pneumonia, consideration. Obtain a chest x-ray, PA and lateral view. Hold off the Coumadin because of severe excessive nonproductive cough, fiberoptic bronchoscopy assessed was planned to be done tomorrow morning. Add the Mucinex to the treatment. Use of flutter valve will be ordered to the treatment as [place], [place] EMERGENCY DEPARTMENT REPORT NAME: ZENA CABRERA UNIT #: [id number] PT STATUS: DIS IN DOCTOR: TOMMY HARMAN MD,HERMILA ROOM #: 505 well. Continue current dose of corticosteroids, bronchodilators. Continue maximal medical management, atrial fibrillation with rapid ventricular response. Supportive care, plan of therapy, additional treatment changes will be made for the patient based on the progression of her illness. Thank you, for allowing me to participate in the care of this patient. HERMILA SANDERS MD CM:EDRPT:EMERGENCY DEPARTMENT REPORT 1314 [id number]
--- NOTE | ~2018-12-30 | DS ---
[place], [place] DISCHARGE SUMMARY NAME: ZENA CABRERA UNIT #: [id number] ROOM: 505 DOCTOR: TY WATERS MD BIRTHDATE: [birth year] DOS: 01/06/2019 DISCHARGE DIAGNOSES: 1. Bilateral community-acquired pneumonia, status post bronchoscopy. 2. Chronic atrial fibrillation with rapid ventricular response. 3. Generalized adult failure to thrive. 4. Acute exacerbation of chronic obstructive pulmonary disease. 5. Benign essential hypertension. 6. Benign positional vertigo. 7. Chronic diastolic type congestive heart failure. 8. Chronic kidney disease stage 3. 9. Advanced adult failure to thrive and ambulatory dysfunction. HOSPITAL COURSE: The patient presented to the Emergency Department with chest congestion and increasing shortness of breath and was found to have bilateral pneumonic infiltrates. The patient also had acute exacerbation of chronic obstructive pulmonary disease and pulmonary fibrosis. The patient was taken for a bronchoscopy by Dr. Guzman. Sputum cultures were performed and she was appropriately treated for community-acquired pneumonia and she has clinically improved. The patient has severe cough, which has also improved with treatment. 1. Acute exacerbation of chronic obstructive pulmonary disease, improved with treatment with corticosteroids, oxygen and bronchodilators. 2. Chronic diastolic type congestive heart failure, now compensated with Bumex. 3. Old age adult failure to thrive, now the patient is ambulating and she worked with physical therapy. She was able to take a shower by herself this morning. 4. The patient anticoagulated with Coumadin with INR therapeutic. LABORATORY DATA: Blood cultures were negative. INR 3.2, BUN and creatinine 32 and 1.75. DISCHARGE MANAGEMENT: Coreg 12.5 mg b.i.d., Colace 200 mg daily for constipation. Coumadin 5 mg every Sunday and Sunday and 2.5 mg every Sunday, Sunday, , Sunday and Sunday, Bumex every other day 1 mg, propafenone 150 mg every 8 hours, losartan 50 mg a day, DuoNebs q.i.d. The patient to continue on Ceftin 500 mg daily for 7 days. Follow up with PCP within a week. [place], [place] DISCHARGE SUMMARY NAME: ZENA CABRERA UNIT #: [id number] ROOM: 505 DOCTOR: TY WATERS MD BIRTHDATE: [birth year] TY WATERS MD CM:THIEN [id number] TY WATERS MD 01/06/19 1513 interface
--- NOTE | ~2018-12-30 | PR ---
[place], [place] PROGRESS NOTE [id number] UN[facility] #: [id number] ROOM: 505 DOCTOR: TY WATERS MD BIRTHDATE: [birth year] DOS: 01/03/2019 SUBJECTIVE: The patient still has significant cough, some shortness of breath. PHYSICAL EXAMINATION: GENERAL APPEARANCE: The patient is alert and oriented x 3, in no visible distress. VITAL SIGNS: Blood pressure 143/59, heart rate of 94 beats per minute, breathing 19 times per minute, temperature 98.8 degrees Fahrenheit. HEENT AND NECK: Exam within normal limits. CARDIOVASCULAR SYSTEM: Heart rate is regular in rate and rhythm. S1 and S2 normally audible. LUNGS: Clear to auscultation. ABDOMEN: Soft, nontender. No obvious organomegaly. Bowel sounds are present. EXTREMITIES: Without significant cyanosis or edema. IMPRESSION: 1. The patient developed atrial fibrillation with rapid ventricular response overnight and was started on Cardizem infusion and heart rate has normalized. 2. Acute exacerbation of severe underlying chronic obstructive pulmonary disease with lung scarring, being treated with bronchodilators and corticosteroids. 3. Bilateral lower lobe pneumonia and scarring. The patient is status post bronchoscopy by Dr. Guzman. 4. Severe cough, which is being treated. 5. Benign essential hypertension being treated and controlled. Blood pressure is staying normal. 6. Chronic atrial fibrillation. The patient anticoagulated with Coumadin. Protimes are being monitored. 7. Generalized weakness and adult failure to thrive. The patient is working with physical therapy. TY WATERS MD CM:PNTRANS [id number] [id number] TY WATERS MD 01/03/19 1020 interface
--- NOTE | ~2018-12-30 | PR ---
[place], [place] PROGRESS NOTE NAME: ZENA CABRERA UNIT #: [id number] ROOM: 505 DOCTOR: HERMILA RIVERA MD BIRTHDATE: [birth year] DOS: 01/02/2019 PULMONARY PROGRESS NOTE SUBJECTIVE: She is n.p.o. past midnight for bronchoscopy, still noted with excessive severe cough, chest congestion. Denies symptoms of fever or chills. Denies symptoms of nausea, vomiting, diarrhea, or any abdominal pain. The patient denies symptoms of hemoptysis. The cough is noted exacerbation with chest congestion. Denies symptoms of hematemesis, melena, or hematochezia. Denies symptoms of abdominal pain, nausea, vomiting, diarrhea, headache, or diplopia. Remaining systems were reviewed with the patient, they were noted all negative OBJECTIVE: GENERAL: The patient was noted comfortable at this time, resting on the bed with nonproductive cough and chest congestion noted during assessment. VITAL SIGNS: Normal temperature, respiratory rate 18, heart rate of 100. Blood pressure 169/103-146/59 earlier recorded. Pulse oxygen saturation on room air 94% saturation. HEENT: Examination shows head was atraumatic. Eyes nonicterus. NECK: Supple. CARDIOVASCULAR: S1, S2 is audible. LUNGS: Lung was noted without any crackles. Expiratory wheezing. ABDOMEN: Soft, nontender. Bowel sounds present. EXTREMITIES: No acute edema. MUSCULOSKELETAL: Without any acute deformities. CENTRAL NERVOUS SYSTEM: The patient noted nonfocal. LABORATORY DATA: Chest x-ray that was done yesterday was noted without any acute pulmonary infiltration. IMPRESSION: 1. Severe coughing, chest congestion was noted at the present time. 2. Acute exacerbation of bronchial asthma as well. There was evidence of pneumonia. PLAN OF MANAGEMENT: Proceed with fibrobronchoscopy with plan to remove the mucus plugs. PT/INR were noted 2.2, which is therapeutic. Care will be taken to prevent any bleeding, or agitation of the airways during the procedure. Other therapy, plan of management, additional treatment changes will be ordered based on the progression of her illness. [place], [place] PROGRESS NOTE NAME: ZENA CABRERA UNIT #: [id number] ROOM: 505 DOCTOR: HERMILA RIVERA MD BIRTHDATE: [birth year] HERMILA SANDERS MD CM:PNTRANS [id number] HERMILA HARMAN MD 01/22/19 0917 interface
--- NOTE | ~2018-12-30 | PR ---
[place], [place] PROGRESS NOTE [id number] UNIT #: [id number] ROOM: 505 DOCTOR: TY WATERS MD BIRTHDATE: [birth year] DOS: 01/05/2019 SUBJECTIVE: The patient is still complaining of significant cough, although overall better. The patient's blood pressure has been elevated. OBJECTIVE: GENERAL APPEARANCE: The patient is alert and oriented x 3, in no visible distress. Generalized weakness. VITAL SIGNS: Blood pressure 142/68, heart rate 72 beats per minute, breathing 18 times per minute, temperature 98 degrees Fahrenheit. HEENT AND NECK: Exam within normal limits. CARDIOVASCULAR SYSTEM: Heart rate is regular in rate and rhythm. S1 and S2 normally audible. LUNGS: Show fine crackles, some expiratory wheezing, which is generalized. ABDOMEN: Soft, nontender. No obvious organomegaly. Bowel sounds are present. EXTREMITIES: Without significant cyanosis or edema. IMPRESSION: 1. The patient with community-acquired pneumonia, treated with antibiotics. The patient is status post bronchoscopy, being treated with antibiotics. Sputum cultures have been normal. 2. Chronic atrial fibrillation with rapid ventricular response, treated with IV Cardizem to control her heart rate. Cardiology is following. 3. Generalized adult failure to thrive. The patient is working in physical therapy. 4. Acute exacerbation of chronic obstructive pulmonary disease, improving with treatment with antibiotics and bronchodilators. TY WATERS MD CM:PNTRANS [id number] TY WATERS MD 01/05/19 225 interface
--- NOTE | ~2018-12-30 | PR ---
[place], [place] PROGRESS NOTE NAME: ZENA CABRERA UNIT #: [id number] ROOM: 505 DOCTOR: SAM WALSH MD BIRTHDATE: [birth year] DOS: 01/04/2019 REASON FOR VISIT: Atrial fibrillation, tachycardia. SUBJECTIVE: The patient is feeling better. Denies any chest pain or shortness of breath. No fever and chills. She is anticipating to go home soon. No PND, no orthopnea. No nausea or vomiting. No fever and chills. No neurologic symptoms. No bladder or bowel symptoms. No musculoskeletal symptoms. REVIEW OF SYSTEMS: Review of the 8 systems negative except as mentioned above. PHYSICAL EXAMINATION: VITAL SIGNS: Blood pressure 140/86, pulse 77, respiratory rate 20, weight 73.9 kg, BMI 32. RHYTHM STRIPS: The patient in sinus rhythm. GENERAL: Alert, comfortable, in no acute distress. HEENT: Pupils are round and equal. No jaundice. NECK: Supple, no distended neck veins. No carotid bruit. CHEST: Symmetrical, nontender. LUNGS: Few scattered rhonchi. HEART: Regular rhythm, no S3. Grade 1/6 systolic murmur. ABDOMEN: Benign, nontender. Bowel sounds normal. EXTREMITIES: Showed no edema. Distal pulses palpable. SKIN: Warm and dry. No cyanosis, no clubbing. RECTAL: Deferred. GENIOTURINARY: Deferred. NEUROLOGIC: The patient is alert with no focal neurologic deficit. MEDICATIONS: Reviewed. LABORATORY DATA: Reviewed. INR is 3.2. IMPRESSION: 1. Paroxysmal supraventricular tachycardia, atrial tachycardia versus atrial flutter, currently sinus rhythm. 2. Paroxysmal atrial fibrillation. 3. Hypertension. 4. Bilateral pneumonia. 5. Coronary artery disease. 6. Sepsis. 7. Acute kidney injury. RECOMMENDATIONS: 1. Continue current medications. 2. Monitor her blood pressures, heart rates and protime. 3. No family at the bedside. 4. Keep her INR between 2-3. 5. Cardiology will see as needed during the weekend. [place], [place] PROGRESS NOTE NAME: ZENA CABRERA UNIT #: [id number] ROOM: 505 DOCTOR: SAM WALSH MD BIRTHDATE: [birth year] ASM WALSH MD CM:GAIL [id number] SAM WALSH MD 01/05/19 0002 interface
--- NOTE | ~2018-12-30 | PR ---
[place], [place] PROGRESS NOTE NAME: ZENA CABRERA [facility] #: [id number] UNIT #: [id number] ROOM: 505 DOCTOR: TOMMY HARMAN MD,HERMILA BIRTHDATE: [birth year] DOS: 01/03/2019 PULMONARY ADDENDUM NOTE SUBJECTIVE: The patient independently seen and examined in [id number] encounter, history was confirmed. Labs were reviewed. Note done by the medical records clerk was approved as well. The assessment and management of today's visit personally completed. The patient had a bronchoscopy done yesterday with copious amount of thick mucus impaction removed from the endobronchial tree. She has been noted without any symptoms of hemoptysis. She has been continued on the Coumadin, the patient's anticoagulation. Cultures of the bronchial washing were pending at this time, preliminary cultures were reported as normal castillo. The patient's cough has been noted still at the present time, which is noted nonproductive and it is not expectorating any sputum. Chest pain, the patient was noted with upper abdominal pain secondary to cough. She denies symptoms of fever or chills. Denies symptoms of headache or diplopia, nausea or vomiting. Remaining systems were reviewed. They were noted all negative. PHYSICAL EXAMINATION: GENERAL: The patient was currently sitting on the bed this morning of assessment with some cough was noted, no sputum expectoration. VITAL SIGNS: Normal temperature, respiratory rate 16, heart rate 84, blood pressure 152/88-142/59. Pulse oxygen saturation on room air 96% saturation. HEENT: Examination shows head was atraumatic. Eyes nonicterus. NECK: Supple. CARDIOVASCULAR: S1, S2 is audible. LUNGS: Examination of the lung was noted for this patient with decreased breath sounds in the lungs bilaterally. Occasional wheezing. ABDOMEN: Soft, nontender. Bowel sounds present. EXTREMITIES: No new change. MUSCULOSKELETAL: Without acute deformities. CENTRAL NERVOUS SYSTEM: Intact. LABORATORY DATA: INR of the patient today was noted therapeutic at 2.7. Gram stain of the bronchial washing for this patient, moderate epithelial cells, many white blood cells, few gram-positive cocci in pairs, chains and clusters. Preliminary normal castillo, final culture results were pending. IMPRESSION: 1. The patient who has been currently noted with ongoing acute severe cough, acute bronchitis, exacerbation of bronchial asthma with suboptimal reduction of the symptoms. The patient was also noted chronic kidney disease stage 3 as well. 2. Musculoskeletal pain related to cough. PLAN OF TREATMENT: The patient will be started on Robitussin-AC 5 mL q.6h to decrease the intensity and frequency of cough. Monitor culture results. Suspected to have infection of endobronchial tree for the patient because of [place], [place] PROGRESS NOTE NAME: ZENA CABRERA UNIT #: [id number] ROOM: [facility] DOCTOR: TOMMY HARMAN MD,HERMILA BIRTHDATE: [birth year] incomplete resolution of the cough. Antibiotic modification upon culture results. Order the patient has a flutter valve to help hopefully clear of the sputum and endobronchial tree for the patient as well. Other therapy, plan and management. Additional treatment changes will be made based on progression of her illness. HERMILA SANDERS MD CM:GAIL [phone] HERMILA HARMAN MD 01/04/19 0230 interface
--- NOTE | ~2018-12-30 | EKG ---
[place], [place] ELECTROCARDIOGRAM REPORT NAME: ZENA CABRERA UNIT #: [id number] ROOM: 505 DOCTOR: EPIPHANY DRAFT REPORT BIRTHDATE: [birth year] [facility] Test Date: 2019-01-02 Test Time: 20:53:12 Pat Name: ZENA CABRERA Department: Room: [facility] 1 Gender: F Director Ambulatory: : 1930 Requested By: TY WATERS Order Number: [id number] Reading MD: Benjamín Paige Measurements Intervals [place] Rate: 156 P: 264 MA: 135 QRS: 73 QRSD: 80 T: 241 QT: 234 QTc: 377 Interpretive Statements Supraventricular tachycardia Atrial tachy vs Atrial Flutter with 2:1 block Repolarization abnormality, prob rate related Baseline wander in lead(s) V6 Compared to ECG 12/30/2018 20:42:23 Early repolarization now present Sinus rhythm no longer present Electronically Signed On 01-03-2019 12:50:32 PDT by Benjamín Paige CM:EKGRPT:ELECTROCARDIOGRAM REPORT [id number] [phone] TY BUSTAMANTEANY DRAFT REPORT TY WATERS MD
--- NOTE | ~2018-12-30 | PR ---
[place], [place] PROGRESS NOTE NAME: ZENA CABRERA [facility] #: [id number] UNIT #: [id number] ROOM: 505 DOCTOR: PAKO MARTINEZ BIRTHDATE: [birth year] DOS: 01/03/2019 SUBJECTIVE: The patient reports "I am feeling worse again." She complains of a constant and persistent cough and she feels as if mucus is stuck in the center of her chest. She states that the bleeding that she was coughing up in the previous day, has resolved. She denies any fevers, lightheadedness, dizziness, nausea, vomiting, abdominal pain or diarrhea. She states last night, her heart rate was elevated up to the 170s and she was placed on a Cardizem drip during that time, Cardiology is aware of this and she has since been off the Cardizem drip since very early this morning. She denies any recurrent issues with her heart rate. OBJECTIVE: VITAL SIGNS: Noted to be stable with noting of the heart rate to be in the 160s and 170s per the nursing notes. At the bedside, her heart rate is noted to be in the 70s and 80s in sinus rhythm. She is currently breathing room air. HEENT: Normocephalic, atraumatic. Sclerae nonicteric. NECK: No JVD, no edema. CARDIOVASCULAR: Regular rate and rhythm. No murmurs, rubs or gallops. PULMONARY: Rhonchorous bilaterally with no wheezing or rales. ABDOMEN: Nontender. No rebound, rigidity or guarding. EXTREMITIES: No acute joint deformity, cyanosis or edema. NEUROLOGIC: Cranial nerves 2-12 noted to be generally intact. ASSESSMENT: 1. Community-acquired pneumonia. 2. Supraventricular tachycardia. 3. Acute respiratory failure, status post bronchoscopy day #1. TREATMENT PLAN: 1. We will start the patient on Robitussin-AC 5 mL every 6 hours as scheduled. 2. Chest PT to be performed at the bedside with continued use of the flutter device. 3. Cardiology has been consulted regarding her arrhythmia. She is currently rate controlled on her Coreg at this time. We will reassess the patient in the morning for progression of the illness. PAKO MARTINEZ DO [place], [place] PROGRESS NOTE NAME: ZENA CABRERA UNIT #: [id number] ROOM: 505 DOCTOR: PAKO MARTINEZ BIRTHDATE: [birth year] HERMILA SANDERS MD CM:PNLIV [id number] PAKO MARTINEZ 01/04/19 0549 interface
--- NOTE | ~2018-12-30 | CON ---
[place], [place] REPORT OF CONSULTATION NAME: [id number] UNIT #: [id number] ROOM: 505 DOCTOR: HERMILA RIVERA MD BIRTHDATE: [birth year] DOS: 01/01/2019 PULMONARY CONSULTATION, EVALUATION AND MANAGEMENT CONSULTATION REQUESTED BY: Dr. Murdock. REASON FOR CONSULTAITON: For assessment of the ongoing acute respiratory complaints. HISTORY OF PRESENT ILLNESS: This is an 88-year-old elderly female patient with past history of bronchial asthma. The patient stated that she has been told with the diagnosis of COPD recently as well. She has been traveling from [place]. The patient return to [place]. The patient stated she got off the plane and started having progressive increased of coughing, chest congestion, which worsened gradually up. The symptoms noted significant worsening prior to admission to the hospital. The cough has been noted with a small amount of sputum expectoration, most of the time was noted severe and nonproductive. She has not been able to expectorate any sputum. She does report symptoms of wheezing with that. There were no symptoms of acute chest pain stated. Shortness of breath occurred with exertion with intermittent wheezing. REVIEW OF SYSTEMS: CONSTITUTIONAL SYMPTOMS: Fatigue and tiredness noted. Denies symptoms of fever or chills. Denies any burning, redness, or tenderness. EAR, NOSE, THROAT SYMPTOMS: No sore throat, hoarseness, otalgia, postnasal drainage or epistaxis. CARDIOVASCULAR: Denies angina pain, edema, pain of the lower extremities. GASTROINTESTINAL SYMPTOMS: Dysphagia, nausea, vomiting, diarrhea, abdominal pain, hematemesis, melena, or hematochezia. SKIN: Denies abnormal lesions or rashes. CENTRAL NERVOUS SYSTEM: No dizziness, headache, diplopia, syncopal episodes. Remaining systems were reviewed with the patient, they were noted all negative. PAST MEDICAL HISTORY: 1. Permanent atrial fibrillation. 2. Congestive heart failure, diastolic dysfunction. 3. Essential hypertension. 4. Benign positional vertigo. 5. Chronic kidney disease stage 3. 6. Bronchial asthma. 7. History stated for chronic obstructive pulmonary. 8. History of coronary artery disease. SOCIAL HISTORY: Stated by the patient as she is currently , has 5 children. There were no history of alcohol, tobacco or illicit drug use stated by the patient. PAST SURGICAL HISTORY: 1. Hysterectomy. 2. Appendectomy. [place], [place] REPORT OF CONSULTATION NAME: ZENA CABRERA UNIT #: [id number] ROOM: [facility] DOCTOR: TOMMY HARMAN MD,HERMILA BIRTHDATE: [birth year] 3. Bilateral breast biopsy, which was benign. 4. Partial bowel resection, nonmalignant. FAMILY HISTORY: The patient reported for cancer and hypertension. CURRENT MEDICATIONS: Administered were noted as Coumadin, Bumex, Solu-Medrol 40 mg IV b.i.d., Mucinex, Coreg, propafenone, losartan, DuoNeb, Zithromax and Rocephin. ALLERGIES: 1. SULFA DRUG. 2. CODEINE. 3. QUININE. PHYSICAL EXAMINATION: GENERAL: An 88-year-old elderly female, currently noted without any acute distress. Height of 5 feet, weight 158 pounds, BMI 30.9. VITAL SIGNS: Normal temperature, respiratory rate 18-20, heart rate of 122-94, atrial fibrillation, blood pressure 150/62. Pulse oxygen saturation on 2 L nasal cannula 98% saturation on room air 97% saturation this morning also recorded. HEENT: Examination shows head was atraumatic. Eyes nonicterus. NECK: Supple. CARDIOVASCULAR: S1, S2 is audible. LUNGS: The patient noted with expiratory wheezing in the lungs bilaterally, scattered crackles of the lungs. ABDOMEN: Soft, flat, nontender, bowel sounds present. EXTREMITIES: The patient noted without any acute edema, clubbing, or cyanosis. MUSCULOSKELETAL: Without any acute deformities. CENTRAL NERVOUS SYSTEM: Cranial nerves 2-12 intact. LABORATORY DATA: CBC that was done just on 12/30/2018 noted with a WBC count normal, hemoglobin 11.7, platelet count normal, 4.9% eosinophils. PT/PTT noted as INR 2.1, PTT 32 on 12/30/2018. CMP on 12/30/2018, BUN 35, creatinine 2.31. PT/INR yesterday repeated at 2.0. The PT/INR this morning was 1.9. The chest x-ray was personally reviewed and was noted with a small patchy area of infiltration in the lower lungs with linear atelectasis. There were no pleural fluid hyperinflated lungs noted. IMPRESSION: 1. The patient will be currently admitted to the hospital. The patient developed acute exacerbation of bronchial asthma, eosinophilia, phenotype. 2. The patient with chronic kidney disease stage 2. 3. Permanent atrial fibrillation with current acute rapid ventricular response because of current acute exacerbation of bronchial asthma. 4. The patient with chronic anticoagulation with Coumadin. 5. Basilar area of atelectasis, most likely rather than acute pneumonia, consideration. Obtain a chest x-ray, PA and lateral view. Hold off the Coumadin because of severe excessive nonproductive cough, fiberoptic bronchoscopy assessed was planned to be done tomorrow morning. Add the Mucinex [place], [place] REPORT OF CONSULTATION NAME: ZENA CABRERA UNIT #: [id number] ROOM: 505 DOCTOR: TOMMY HARMAN MD,HERMILA BIRTHDATE: [birth year] to the treatment. Use of flutter valve will be ordered to the treatment as well. Continue current dose of corticosteroids, bronchodilators. Continue maximal medical management, atrial fibrillation with rapid ventricular response. Supportive care, plan of therapy, additional treatment changes will be made for the patient based on the progression of her illness. Thank you, for allowing me to participate in the care of this patient. HERMILA SANDERS MD CM:CONSTR:REPORT OF CONSULTATION 1314 01/22/19 0915 interface
--- NOTE | ~2018-12-30 | PROC NOTE ---
[place], [place] PROCEDURE NOTE NAME: ZENA CABRERA UNIT #: [id number] ROOM: 505 DOCTOR: TOMMY HARMAN MD,HERMILA BIRTHDATE: [birth year] DOS: 01/02/2019 BRONCHOSCOPY NOTE PREOPERATIVE DIAGNOSES: Severe coughing, nonresolving wheezing. POSTOPERATIVE DIAGNOSES: Tracheobronchitis, mucus impaction. PROCEDURE DESCRIPTION: Informed consent obtained for the patient. The patient brought to the OR and placed in supine position. Conscious sedation administered by the Anesthesia Department. After that, bronchoscope was advanced through bronchoscope through the airway into laryngeal area. Epiglottis and vocal cords were seen. Bronchoscope was back to the vocal cord. Tracheal lumen noted with moderate amount of very thick mucus secretion, suctioned out to the javier level. Egbtxngx-lo-mgyhdt impaction of the mucus plug present in almost all of the endobronchial subsegments, right upper, right middle, right lower, left upper, lingular lower lobe. The bronchial washing was taken, all the mucus plugs were removed. The procedure was well tolerated by the patient without difficulty. Postoperative findings will be discussed with the patient once the patient recovered the effects of acute sedation. HERMILA SANDERS MD CM:PROCNOTE:PROCEDURE NOTE [id number] HERMILA HARMAN MD
--- NOTE | ~2018-12-30 | PR ---
[place], [place] PROGRESS NOTE NAME: [id number] UNIT #: [id number] ROOM: 505 DOCTOR: TOMMY HARMAN MD,HERMILA BIRTHDATE: [birth year] DOS: 01/04/2019 SUBJECTIVE: The patient noted comfortable at this time, resting comfortably in the bed this morning of assessment. Coughing has been decreased yesterday, but the resolution noted incomplete. The patient states she is able to sleep last night few hours and cough is noted better. Denies symptoms of chest pain. Denies symptoms of hemoptysis. Shortness of breath is resolving. OBJECTIVE: VITAL SIGNS: For the patient normal temperature, respiratory rate 20, heart rate recorded as 77. Blood pressure 148/88. The pulse oxygen saturation on room air 95% saturation. HEENT: Examination shows head was atraumatic. Eyes nonicterus. NECK: Supple. CARDIOVASCULAR: S1, S2 is audible. LUNGS: Lung was noted without any wheezing today. ABDOMEN: Soft, nontender. Bowel sounds present. EXTREMITIES: The patient noted without any acute edema. LABORATORY DATA: INR noted 3.2, which is therapeutic. The cultures of the bronchial washing noted with normal castillo. IMPRESSION: The patient with resolving acute exacerbation of bronchial asthma, acute tracheobronchitis gradually and progressively with current medical management. PLAN OF MANAGEMENT: The patient could be considered for home discharge today from pulmonary standpoint. Outpatient followup could be established by the patient post-discharge for further assessment of bronchial asthma long-term management plan. HERMILA SANDERS MD CM:PNTRANS [phone] [id number] HERMILA HARMAN MD 01/04/192110 interface
--- NOTE | ~2018-12-30 | WRIGHTHP ---
[place], [place] PATIENT HISTORY AND PHYSICAL EXAM NAME: ZENA CABRERA [facility] #: [id number] UNIT #: [id number] ROOM: 505 DOCTOR: TY WATERS MD BIRTHDATE: [birth year] DOS: 12/30/2018 HISTORY OF PRESENT ILLNESS: The patient is an 88-year-old female with a past medical history of: 1. Benign positional vertigo. 2. Benign essential hypertension. 3. Chronic atrial fibrillation. 4. Chronic diastolic type congestive heart failure. 5. Chronic kidney disease stage 3. 6. Old age and failure to thrive with generalized weakness and adult failure to thrive with ambulatory dysfunction. The patient presented to the Emergency Department with chest congestion, increasing shortness of breath and cough for about a day. The patient was found to have bilateral pneumonic infiltrates in the lower lungs and after initial treatment in the Emergency Department, recommended for admission and further treatment for pneumonia because of her advanced age. After admission, the patient says she is feeling quite weak and has difficulty with walking. She also has significant cough and her muscles hurt when she coughs. No complaints of fever, dizziness or fainting episodes. No other chest pains, GI or urinary symptoms. REVIEW OF SYSTEMS: RESPIRATORY: Increasing shortness of breath and cough. GASTROINTESTINAL: No nausea, vomiting, diarrhea, constipation. CARDIOVASCULAR: No chest pains or palpitations. HOME MEDICATIONS: The patient takes Breo inhaler, aspirin, Bumex. She was also taking Ceftin at home, vitamin D, Flexeril. ALLERGIES: SULFUR, CODEINE, AND QUININE. FAMILY HISTORY: Noncontributory. SOCIAL HISTORY: Denies smoking cigarettes, but she has extensive history of being exposed to her 's secondhand smoke, who used to smoke 3 packs of cigarettes a day. Denies any alcohol or drug abuse. PHYSICAL EXAMINATION: GENERAL APPEARANCE: Alert, oriented x 3, in no visible distress. HEENT AND NECK: Extraocular movements are intact. Sclerae are anicteric. Oral mucosa is moist and clean. No obvious facial weakness. Neck is supple without any lymphadenopathy. No thyromegaly. No JVD. No carotid arterial bruits. LUNGS: Decreased breath sounds bilaterally in both lung ybarra and lower lung bilateral crackles and generalized weakness. CARDIOVASCULAR SYSTEM: Heart rate is regular in rate and rhythm. S1 and S2 normally audible. No significant murmur or any other abnormal cardiac sounds. ABDOMEN: Soft, nontender. No obvious organomegaly. Bowel sounds are present. No obvious herniation. EXTREMITIES: Without significant cyanosis or edema. Warm to touch. [place], [place] PATIENT HISTORY AND PHYSICAL EXAM NAME: ZENA CABRERA UNIT #: [id number] ROOM: [facility] DOCTOR: TY WATERS MD BIRTHDATE: [birth year] CENTRAL NERVOUS SYSTEM: Alert and oriented x 3. Cranial nerves II-XII are intact. Speech is normal. The patient is able to move all extremities. Normal muscle strength. Deep tendon reflexes are equal on both sides. Plantars were downgoing. LABORATORY DATA: Chest x-ray showing bilateral lower lung infiltrates. INR therapeutic at 2. BUN and creatinine 35 and 2.3. Hemoglobin 11. No leukocytosis. IMPRESSION: 1. Bilateral lower lung community-acquired pneumonia, being treated with azithromycin and Rocephin. The patient to be followed closely, treated with oxygen and breathing treatments as necessary. 2. Generalized weakness and adult failure to thrive. The patient to be treated with physical therapy. 3. Chronic atrial fibrillation. The patient anticoagulated with Coumadin. Protime should be monitored daily. 4. Benign essential hypertension, being treated with losartan. Blood pressure is to be monitored and controlled. TY WATERS MD CM:HISPHYS:PATIENT HISTORY AND PHYSICAL EXAMINATION [id number] TY WATERS MD 12/31/18 1155 interface
[2018-12-30 20:07] VITALS: BP 143/108
[2018-12-30 20:50] LABS: BASO % 0.7 % (0.0-1.0); EOS # 0.3 10*3/uL (0.0-0.4); EOS % 4.9 % (1.0-4.0); HEMATOCRIT 35.4 % (37.0-47.0); HEMOGLOBIN 11.1 g/dl (12.0-16.0); LYMPH # 1.9 10*3/uL (1.3-4.4); MEAN CELL VOLUME 94.9 fl (81.0-99.0); MEAN CORPUSCULAR HGB 29.8 pg (27.0-31.0); MEAN CORPUSCULAR HGB CONC 31.4 g/dl (33.0-37.0); MEAN PLATELET VOLUME 10.7 fl (9.6-12.3); MONO # 0.7 10*3/uL (0.1-1.0); MONO % 12.6 % (3.0-9.0); NEUT # 2.8 10*3/uL (2.3-7.9); NEUT % 48.5 % (47.0-73.0); PLATELET COUNT AUTOMATED 207 10*3/uL (130-400); RED BLOOD COUNT 3.73 10*6/uL (4.10-5.10); WHITE BLOOD COUNT 5.7 10*3/uL (4.8-10.8)
[2018-12-30 21:07] LABS: ACT PARTIAL THROMBO TIME 32.7 SECONDS (20.0-32.1); INTERNATIONAL NORM RATIO 2.1 (2.0-3.5)
[2018-12-30 21:29] LABS: ALBUMIN 3.3 gm/dl (3.1-4.5); ALKALINE PHOSPHATASE 165 U/L (45-117); BUN 35 mg/dl (7-24); CHLORIDE 109 mmol/L (98-107); CREATININE 2.31 mg/dL (0.55-1.02); POTASSIUM 4.3 mmol/L (3.5-5.1); SGOT/AST 35 IU/L (3-35); SGPT/ALT 28 U/L (12-78); SODIUM 141 mmol/L (136-145); TOTAL PROTEIN 7.2 gm/dL (6.4-8.2)
[2018-12-30 21:30] LABS: TROPONIN I < 0.015 ng/ml (<0.045)
[2018-12-30 23:35] VITALS: BP 160/76
[2018-12-31] VITALS: BP 136/74; BP 173/64; BP 72/59
[2018-12-31 07:28] VITALS: BP 162/64
[2018-12-31 12:00] VITALS: BP 119/51
[2018-12-31 16:00] VITALS: BP 118/58
[2018-12-31 20:00] VITALS: BP 130/53
[2019-01-01] VITALS: BP 133/64
[2019-01-01 06:52] LABS: INTERNATIONAL NORM RATIO 1.9 (2.0-3.5)
[2019-01-01 07:29] VITALS: BP 150/62
[2019-01-01 12:00] VITALS: BP 116/81
[2019-01-01 12:14] VITALS: BP 130/48
[2019-01-01 16:00] VITALS: BP 135/67
[2019-01-01 20:00] VITALS: BP 137/63
[2019-01-02] VITALS (11 sets, daily range): BP systolic 132–169; BP diastolic 54–103
[2019-01-02 06:29] LABS: INTERNATIONAL NORM RATIO 2.3 (2.0-3.5)
[2019-01-02 21:12] LABS: BASO % 0.1 % (0.0-1.0); HEMATOCRIT 36.8 % (37.0-47.0); HEMOGLOBIN 11.5 g/dl (12.0-16.0); LYMPH # 1.9 10*3/uL (1.3-4.4); LYMPH % 13.9 % (27.0-41.0); MEAN CELL VOLUME 92.9 fl (81.0-99.0); MEAN CORPUSCULAR HGB CONC 31.3 g/dl (33.0-37.0); MEAN PLATELET VOLUME 10.7 fl (9.6-12.3); MONO # 0.7 10*3/uL (0.1-1.0); MONO % 5.1 % (3.0-9.0); NEUT # 11.2 10*3/uL (2.3-7.9); NEUT % 80.5 % (47.0-73.0); PLATELET COUNT AUTOMATED 239 10*3/uL (130-400); RED BLOOD COUNT 3.96 10*6/uL (4.10-5.10); RED CELL DISTRI WIDTH 14.9 % (0-14.5); WHITE BLOOD COUNT 13.9 10*3/uL (4.8-10.8)
[2019-01-02 21:46] LABS: CREATININE 1.75 mg/dL (0.55-1.02); POTASSIUM 4.2 mmol/L (3.5-5.1)
[2019-01-03] VITALS: BP 143/59
[2019-01-03 06:59] LABS: INTERNATIONAL NORM RATIO 2.7 (2.0-3.5)
[2019-01-03 08:00] VITALS: BP 152/88
[2019-01-03 12:00] VITALS: BP 146/94; BP 148/88
[2019-01-03 16:00] VITALS: BP 147/99
[2019-01-03 20:00] VITALS: BP 152/72
[2019-01-04] VITALS: BP 147/72
[2019-01-04 06:49] LABS: INTERNATIONAL NORM RATIO 3.2 (2.0-3.5)
[2019-01-04 08:00] VITALS: BP 148/88
[2019-01-04 12:00] VITALS: BP 143/68
[2019-01-04 16:00] VITALS: BP 138/66
[2019-01-04 20:00] VITALS: BP 117/64
[2019-01-05] VITALS: BP 150/91
[2019-01-05 04:00] VITALS: BP 142/68
[2019-01-05 08:00] VITALS: BP 183/78
[2019-01-05 12:00] VITALS: BP 152/81
[2019-01-05 16:00] VITALS: BP 164/86
[2019-01-05 20:00] VITALS: BP 144/70
[2019-01-06] VITALS: BP 148/74
[2019-01-06 05:40] VITALS: BP 157/75
[2019-01-06 08:00] VITALS: BP 156/67
[2019-01-06 12:00] VITALS: BP 150/72
[2019-01-06] MEDS ORDERED: DOCUSATE SOD100 MG PO (13:30)
[2019-01-06] MEDS ORDERED: COREG12.5 M1 PO (13:30)
[2019-01-08 09:50] LABS: ACID FAST SPEC PROCESSING Concentration (.)
== END 2019-01-06 17:51 | disposition home health service (06) | DRG 871 ==
LOC: ED 20:06 → EDHOLD 22:38 → 5E 22:38
PROVIDERS: Internal Medicine; Internal Medicine Critical Care Medicine; Student in an Organized Health Care Education/Training Program; ADMIT Internal Medicine
PROC: 0BC38ZZ Extirpation of Matter from Right Main Bronchus, Via Natural or Artificial Opening Endoscopic (ICD-10-PCS; principal; 2019-01-02)
PROC: 0BC78ZZ Extirpation of Matter from Left Main Bronchus, Via Natural or Artificial Opening Endoscopic (ICD-10-PCS; principal; 2019-01-02)
PROC: 0BC48ZZ Extirpation of Matter from Right Upper Lobe Bronchus, Via Natural or Artificial Opening Endoscopic (ICD-10-PCS; principal; 2019-01-02)
PROC: 0BCB8ZZ Extirpation of Matter from Left Lower Lobe Bronchus, Via Natural or Artificial Opening Endoscopic (ICD-10-PCS; principal; 2019-01-02)
PROC: 0BC68ZZ Extirpation of Matter from Right Lower Lobe Bronchus, Via Natural or Artificial Opening Endoscopic (ICD-10-PCS; principal; 2019-01-02)
PROC: 0BC18ZZ Extirpation of Matter from Trachea, Via Natural or Artificial Opening Endoscopic (ICD-10-PCS; principal; 2019-01-02)
PROC: 0BC88ZZ Extirpation of Matter from Left Upper Lobe Bronchus, Via Natural or Artificial Opening Endoscopic (ICD-10-PCS; principal; 2019-01-02)
PROC: 0BC58ZZ Extirpation of Matter from Right Middle Lobe Bronchus, Via Natural or Artificial Opening Endoscopic (ICD-10-PCS; principal; 2019-01-02)
PROC: 0BC98ZZ Extirpation of Matter from Lingula Bronchus, Via Natural or Artificial Opening Endoscopic (ICD-10-PCS; principal; 2019-01-02)
DX: A41.9 Sepsis, unspecified organism (principal); J18.1 Lobar pneumonia, unspecified organism; J96.00 Acute respiratory failure, unspecified whether with hypoxia or hypercapnia; J44.1 Chronic obstructive pulmonary disease with (acute) exacerbation; I50.32 Chronic diastolic (congestive) heart failure; N17.9 Acute kidney failure, unspecified; N18.4 Chronic kidney disease, stage 4 (severe); J98.11 Atelectasis; I47.1 Supraventricular tachycardia; T17.590A Other foreign object in bronchus causing asphyxiation, initial encounter; J44.0 Chronic obstructive pulmonary disease with (acute) lower respiratory infection; J82 Pulmonary eosinophilia, not elsewhere classified; I48.0 Paroxysmal atrial fibrillation; J84.10 Pulmonary fibrosis, unspecified; I25.10 Atherosclerotic heart disease of native coronary artery without angina pectoris; J20.9 Acute bronchitis, unspecified; F41.9 Anxiety disorder, unspecified; I12.9 Hypertensive chronic kidney disease with stage 1 through stage 4 chronic kidney disease, or unspecified chronic kidney disease; R62.7 Adult failure to thrive; X58.XXXA Exposure to other specified factors, initial encounter; H81.10 Benign paroxysmal vertigo, unspecified ear; Z88.2 Allergy status to sulfonamides; Z88.5 Allergy status to narcotic agent; Z88.1 Allergy status to other antibiotic agents; Z87.440 Personal history of urinary (tract) infections; Z90.49 Acquired absence of other specified parts of digestive tract; Y93.89 Activity, other specified; Y92.89 Other specified places as the place of occurrence of the external cause; Y99.8 Other external cause status; Z90.710 Acquired absence of both cervix and uterus; Z80.42 Family history of malignant neoplasm of prostate; Z82.0 Family history of epilepsy and other diseases of the nervous system; Z82.49 Family history of ischemic heart disease and other diseases of the circulatory system; Z79.01 Long term (current) use of anticoagulants; Z68.30 Body mass index [BMI] 30.0-30.9, adult

== ENCOUNTER → 2019-01-17 | Outpatient (CLI) | payer MEDICARE ==
[~2019-01-17] MED LIST changes: +ALLOPURINOL100 MG PO; +COREG12.5 M1 PO; +DOCUSATE SOD100 MG PO
== END | disposition home or self-care (01) ==
LOC: RAD 10:30
DX: J44.9 Chronic obstructive pulmonary disease, unspecified (principal); I10 Essential (primary) hypertension; J18.9 Pneumonia, unspecified organism

== ENCOUNTER 2019-02-17 22:40 | Inpatient (IN) | payer MEDICARE ==
[~2019-02-17] VITALS: Ht 152.4 cm; Wt 73.2 kg
[~2019-02-17 22:40] MED LIST changes: -ALLOPURINOL100 MG PO
[2019-02-17 22:45] VITALS: BP 114/57
--- NOTE | 2019-02-18 00:01 | NUR ---
PATIENT MEDICATED PER EMAR FOR PAIN. CONT PULSE OX IN PLACE. PT RESTING COMFORTABLY. ARM IS IN CLOTH SLING. PATIENT DOES NOT WANT TO REMOVE SHIRT AT THIS TIME DUE TO PAIN. WILL CONTINUE TO MONITOR AND RE-ASSESSS PAIN.
[2019-02-18 01:18] LABS: BASO % 0.4 % (0.0-1.0); EOS # 0.2 10*3/uL (0.0-0.4); EOS % 1.7 % (1.0-4.0); HEMATOCRIT 32.5 % (37.0-47.0); HEMOGLOBIN 10.3 g/dl (12.0-16.0); MEAN CELL VOLUME 93.1 fl (81.0-99.0); MEAN CORPUSCULAR HGB 29.5 pg (27.0-31.0); MEAN CORPUSCULAR HGB CONC 31.7 g/dl (33.0-37.0); MEAN PLATELET VOLUME 10.7 fl (9.6-12.3); MONO # 0.8 10*3/uL (0.1-1.0); MONO % 8.4 % (3.0-9.0); NEUT # 6.1 10*3/uL (2.3-7.9); NEUT % 67.1 % (47.0-73.0); PLATELET COUNT AUTOMATED 190 10*3/uL (130-400); RED BLOOD COUNT 3.49 10*6/uL (4.10-5.10)
[2019-02-18 01:24] LABS: ACT PARTIAL THROMBO TIME 33.6 SECONDS (20.0-32.1)
[2019-02-18 01:27] LABS: ALBUMIN 3.1 gm/dl (3.1-4.5); CREATININE 1.9 mg/dL (0.55-1.02); POTASSIUM 4.1 mmol/L (3.5-5.1); TOTAL PROTEIN 6.4 gm/dL (6.4-8.2)
--- NOTE | 2019-02-18 02:22 | NUR ---
3 ATTEMPTS MADE WITH PAIN MEDICATION GIVEN TO REMOVE PATIENTS SHIRT FOR HER TO BE IN A GOWN. PATIENT UNABLE TO TOLERATE. PRAKASH JIN LICENSED FUNERAL DIRECTOR AND EMBALMER AWARE AND SAYS IT IS OKAY TO LEAVE HER IN HER SHIRT. RANDY, INPATIENT NURSE AWARE. I WAS ABLE TO RE-PLACE THE CLOTH SLING WITH OUR SLING.
[2019-02-18 02:42] VITALS: BP 118/67
--- NOTE | 2019-02-18 02:53 | NUR ---
Time: 254 A 88 year old FEMALE admitted to 4E under services of DR. ALBERT MCGHEE,JOSE. Pt. arrived via stretcher from ER. Chief complaint: FALL. RANDY MARX
[2019-02-18 03:00] VITALS: BP 148/70
[2019-02-18] MEDS ORDERED: ALLOPURINOL100 MG PO (03:13)
--- NOTE | 2019-02-18 03:14 | NUR ---
MED REC COMPLETED WITH PATIENT ALERT AND ORIENTED TO PERSON PLACE AND TIME.
--- NOTE | 2019-02-18 03:33 | NUR ---
LARGE HEMATOMA TO RIGHT SIDE OF FACE. NO DRAINAGE NOTED.
--- NOTE | 2019-02-18 05:18 | NUR ---
ORDERS TAKEN FROM DR PRICE AT THIS TIME
--- NOTE | 2019-02-18 07:55 | NUR ---
PT REQUESTED AND WAS MEDICATED WITH DILAUDID IV FOR C/O RIGHT SHOULDER PAIN. CALL LIGHT IN REACH. WILL MONITOR
[2019-02-18 08:00] VITALS: BP 167/87
--- NOTE | 2019-02-18 08:08 | NUR ---
dr lucero's office notified of consult.
--- NOTE | 2019-02-18 09:00 | NUR ---
PT STATES PAIN MEDICATION IS "HELPING." CALL LIGHT IN REACH. WILL MONITOR
--- NOTE | 2019-02-18 10:30 | NUR ---
Report Analyst in to talk to patient. Patient states lives at home alone with family calling to check in on her. Her family lives in [place], [place], or [place]. Her 9 month ago and she moved to [place] but didn't like [place] and moved back here to [place] and has an apartment. There are 8 steps in the home. Physician: Dr. Ghulam Grayson. Her sister notified Dr. Grayson of her admission as patient had an appt today. Pharmacy: [facility] Home health services: she would like to have [facility] on discharge Patient's level of ADLs: MINIMAL ASSIST Patient has working utilities: yes DME: cane, nebulizer, she has a walker but left it in [place] Follow-up physician's appointment after d/c: she prefers to make her own follow up appt after discharge Does patient want to access PORTAL?: no Discharge plan discussed with patient. She lives at home alone with family calling in to check on her. She is independent in her ADLs and ambulates with a cane. Discussed home health care services and she would like home health care services on discharge. When provided with a list of agencies she chose [facility] as she has had them previously. She states she had [facility] until 2 weeks ago. When medically stable she will be discharged to home with [facility] services. Her sister and her will provide transportation on discharge as that is who brought her into the hospital. BRAYDEN ALARCON
--- NOTE | 2019-02-18 11:39 | NUR ---
PT REQUESTED AND WAS MEDICATED WITH TYLENOL FOR C/O RIGHT SHOULDER PAIN. CALL LIGHT IN REACH. WILL MONITOR PT UP IN CHAIR, SLING IN PLACE TO RIGHT SHOULDER.
[2019-02-18 12:00] VITALS: BP 147/71
--- NOTE | 2019-02-18 13:50 | NUR ---
PT STATES TYLENOL IS EFFECTIVE. PT STATES SHE IS COMFORTABLE. CALL LIGHT IN REACH. WILL MONITOR
--- NOTE | 2019-02-18 14:55 | NUR ---
Nursing screen received and chart reviewed. Patient admitted with right proximal humerus fracture and closed head injury s/p fall. Patient could benefit from OT evaluation to assess further ADL and mobility needs. Thank you. Yolanda Ackerman OTR/L
--- NOTE | 2019-02-18 15:55 | NUR ---
PHYSICAL THERAPY Nursing screen received and chart reviewed. Please order PT evaluation if decline in functional mobility presents. Thank you, Valentine Dunbar, SPT Kaylee Esteabn,PT,DPT
[2019-02-18 16:00] VITALS: BP 100/41
[2019-02-18 20:00] VITALS: BP 105/49
--- NOTE | 2019-02-18 21:35 | NUR ---
MEDICATED WITH PRN TYLENOL FOR C/O RIGHT SHOULDER PAIN RATED 8/10 ON A 0/10 PAIN SCALE. WILL MONITOR
--- NOTE | 2019-02-18 23:51 | NUR ---
24 HR chart check completed.
[2019-02-19] VITALS: BP 104/54
--- NOTE | 2019-02-19 03:35 | NUR ---
PATIENT RESTING IN BED WITH NO S/S OF DISTRESS. RESPS EASY AND REGULAR. BED IN LOWEST POSITION, CALL LIGHT IN REACH
--- NOTE | 2019-02-19 05:49 | NUR ---
MEDICATED WITH PRN DILAUDID FOR C/O PAIN RATED 8/10 ON A 0/10 PAIN SCALE IN THE RIGHT SHOULDER
--- NOTE | 2019-02-19 07:52 | NUR ---
PT MEDICATED WITH PO TYLENOL PER PRN ORDER FOR C/O RIGHT SHOULDER PAIN. RATES PAIN 01/18. WILL MONITOR EFFECTIVENESS.
--- NOTE | 2019-02-19 07:55 | NUR ---
IN TO SEE PATIENT.
--- NOTE | 2019-02-19 08:38 | NUR ---
ICE PACK MAINTAINED TO RIGHT SHOULDER. PATIENT SITTING UP IN CHAIR. PT STATES PAIN BEING RELIEVED AT THIS TIME. WILL CONTINUE TO MONITOR.
--- NOTE | 2019-02-19 09:00 | NUR ---
Custodial Aide in to see patient. Discussed short term SNF and she refuses. Discussed home health care services and she remains agreeable and would like a nurse, PT/OT, and aides. When medically stable she will be discharged to home with [facility] services.
[2019-02-19 09:15] LABS: INTERNATIONAL NORM RATIO 3.9 (2.0-3.5)
--- NOTE | 2019-02-19 10:10 | NUR ---
Occupational therapy orders received and chart review. Patient refusing OT evaluation at this time due to increased pain. Patient reported she is trying a different pain medication at 11am, and she would prefer if OTR returns after lunch. Will follow up with patient this afternoon. Thank you for the referral. Mariangel Bolton, OTR/L
[2019-02-19 12:00] VITALS: BP 107/42
--- NOTE | 2019-02-19 13:26 | NUR ---
ROUTINE ULTRAM EFFECTIVE PER PT. WILL CONTINUE TO MONITOR.
--- NOTE | 2019-02-19 14:02 | NUR ---
Occupational therapy orders received and OT eval completed with POC in full on floor four. Patient precautions include, gentle ROM to right hand and elbow only, right proximal humerus fx, NWB right UE, fall risk, chair alarm. Per OT eval and chart review, OT recommends SNF with OT/PT. Patient would benefit from continued OT treatment to maximize independence in ADLs, functional mobility/transfers, safety, and AROM of elbow and hand. Patient complexity is moderate, [id number]. Thank you for the referral. Mariangel Bolton, OTR/L
--- NOTE | 2019-02-19 14:07 | NUR ---
PT MEDICATED WITH IV DILAUDID SLOWLY PER PRN ORDER FOR C/O RIGHT SHOULDER PAIN. RATES PAIN 02/18. WILL MONITOR EFFECTIVENESS.
--- NOTE | 2019-02-19 15:00 | NUR ---
PAIN BEING RELIEVED PER PT. WILL CONTINUE TO MONITOR.
[2019-02-19 16:00] VITALS: BP 126/67
--- NOTE | 2019-02-19 17:49 | NUR ---
CALLED REGARDING INR OF 3.9. HOLD COUMADIN AT THIS TIME. REPEAT PT/INR TOMORROW AM.
[2019-02-19 20:00] VITALS: BP 123/53
--- NOTE | 2019-02-19 22:36 | NUR ---
PT MEDICATED WITH PRN DILAUDID FOR C/O ARM PAIN RATED A 10/10. WILL MONITOR FOR EFFECTIVESS.
--- NOTE | 2019-02-19 23:30 | NUR ---
PT APPEARS TO BE RESTING COMFORTABLY WITHOUT ANY S/S OF DISTRESS. WILL CONTINUE TO MONITOR.
[2019-02-20] VITALS: BP 129/54
[2019-02-20 06:18] LABS: BASO % 0.4 % (0.0-1.0); EOS # 0.1 10*3/uL (0.0-0.4); EOS % 1.8 % (1.0-4.0); HEMATOCRIT 29.8 % (37.0-47.0); HEMOGLOBIN 9.3 g/dl (12.0-16.0); LYMPH # 2.3 10*3/uL (1.3-4.4); LYMPH % 29.6 % (27.0-41.0); MEAN CELL VOLUME 93.4 fl (81.0-99.0); MEAN CORPUSCULAR HGB 29.2 pg (27.0-31.0); MEAN CORPUSCULAR HGB CONC 31.2 g/dl (33.0-37.0); MEAN PLATELET VOLUME 11.2 fl (9.6-12.3); MONO # 0.9 10*3/uL (0.1-1.0); MONO % 11.1 % (3.0-9.0); NEUT # 4.5 10*3/uL (2.3-7.9); NEUT % 56.6 % (47.0-73.0); PLATELET COUNT AUTOMATED 195 10*3/uL (130-400); RED BLOOD COUNT 3.19 10*6/uL (4.10-5.10); RED CELL DISTRI WIDTH 15.4 % (0-14.5); WHITE BLOOD COUNT 7.9 10*3/uL (4.8-10.8)
[2019-02-20 06:24] LABS: CREATININE 2.27 mg/dL (0.55-1.02); POTASSIUM 4.8 mmol/L (3.5-5.1)
[2019-02-20 06:48] LABS: INTERNATIONAL NORM RATIO 3.9 (2.0-3.5)
[2019-02-20 08:00] VITALS: BP 134/50
--- NOTE | 2019-02-20 08:09 | NUR ---
IN TO SEE PATIENT.
--- NOTE | 2019-02-20 08:11 | NUR ---
[employer] in room with Dr. Schmidt. Discussed short term SNF and she is agreeable. When given a list of facilities she chose [facility]. planner intern notified.
--- NOTE | 2019-02-20 08:54 | NUR ---
Patient is now agreeable to snf rehab. [facility]ed [facility]. Contacted facility, they will have a discharge today and a bed available tomorrow. Faxed referral, requires a 3 night stay.
--- NOTE | 2019-02-20 10:05 | NUR ---
PHYSICAL THERAPY Physical therapy evaluation complete. Moderate complexity evaluation (65701) per chart review and evaluation. PT to progress with transfer, gait, balance, and increased safety awareness per POC. Recommend SNF at discharge. Thank you. Kaylee Esteban,PT,DPT.
[2019-02-20 12:00] VITALS: BP 112/46
--- NOTE | 2019-02-20 13:15 | NUR ---
PHYSICAL THERAPY Patient seen this pm 1:1 for therapy visit and was sitting up in bedside chair with her Son present upon therapist arrival. Patient reports 10/10 R shoulder pain from recent fall at home and presented with R arm sling. Upon observation, arm sling needed adjustment for increased support and pain control. Patient instructed on safe transfer technique and completed several sit to stand transfers, MIN A, requiring v/c for proper hand placemnt and remains NWB on R UE. Patient ambulated SPD MANAGER/MIN, 20'x 2 to bathroom, demonstratng slow uriel, decreased stride, and several bouts of unsteady gait pattern. Patient also fatigues quickly and returned to bedside chair following all treatment. Patient remained in chair with call light, tray table, telephone and body alarm for safety, reporting no c/o's of pain since arm sling adjustment. Will continue per POC as tolerated, total treatment time 16 minutes. Anthony Bernardo, MEASUREMENT ADVISOR
--- NOTE | 2019-02-20 13:18 | NUR ---
OT NOTE Pt was seen this P.M. for 20 minute OT session and upon arrival pt was sitting upright in the recliner. Pt identified by name and and had complaints of "10/10 R shoulder pain." Pt presented to therapy with RUE in sling which was laying at waistline with improper fit and was able to verbalize NWB status to [facility] with 100% accuracy. Educated pt on proper fit and readjusted. Pt stated that she felt "instant relief." Pt completed multiple sit to stand transfers from chair level with Fabiola and education to improve technique. Functional mobility completed to the bathroom with Fabiola BARAJAS. There she transferred on/off standard commode with Fabiola and good carry over of NWB to [facility]. Functional mobility then completed back to the recliner where she was left with call light in hand, tray table in place, and body alarm activated for safety. At end of session pt reported 0/10 R shoulder pain. Continue with rec D/C plan to SNF. GINA Heath/Juliet
--- NOTE | 2019-02-20 13:34 | NUR ---
PT GIVEN PO DILAUDID 2MG PER PRN ORDER FOR C/O RIGHT SHOULDER PAIN. RATES PAIN 02/18. WILL MONITOR EFFECTIVENESS.
--- NOTE | 2019-02-20 15:00 | NUR ---
DILAUDID EFFECTIVE PER PT. WILL CONTINUE TO MONITOR. PT UP IN CHAIR. SLING INTACT.
[2019-02-20 16:00] VITALS: BP 100/40
[2019-02-20 20:00] VITALS: BP 114/79
[2019-02-21] VITALS: BP 141/55
--- NOTE | 2019-02-21 07:46 | NUR ---
[facility] 3 night stay complete. patient is ok to go when medically stable for discharge.
[2019-02-21 08:00] VITALS: BP 119/51
[2019-02-21] MEDS ORDERED: HYDROMORPHONE2 MG PO (08:18)
--- NOTE | 2019-02-21 08:30 | NUR ---
PHYSICAL THERAPY Patient seen this am 1:1 for therapy visit and was sitting up in bedside chair upon therapist arrival. Patient voices 7/10 R shoulder pain and present with R UE sling. Patient observed with Poor hand positioning in sling and required therapist adjustment to sling for proper fit and benefit to improve both comfort / reduced c/o pain to 3/10. Patient performed several sit to stand transfers from low chair surface, MOD A, requiring v/c for proper hand placement, then ambulates with use of L side dimitrios walker, 30'x 1, CGA, demonstrating very slow, unsteady step sequence. Patient needed v/c to improve upright posture and safer step sequence upon returning to bedside chair with moderate fatigue. Patient remained in bedside chair with call light, tray table, telphone and body alarm for safety. Will continue per POC as tolerated, total treatment time 16 minutes. Anthony Bernardo, GRAIN MIXER
--- NOTE | 2019-02-21 08:43 | NUR ---
Cell Inspector in to see patient. Discussed transportation to [facility]. Discussed her sister being able to transport her. Patient states she is not sure as her sister has a grandchild that has some issues and goes to [employer]. She thinks he has to be at school for around 10 am. She will call her sister after 10 am to see if she would be able to transport her to [facility]. production planner notified.
--- NOTE | 2019-02-21 09:16 | NUR ---
OT NOTE PATIENT SEEN 1:1 OT THIS DATE. PATIENT IDENTIFIED BY NAME AND DATE OF . PATIENT COMPLETED 11 MINUTES OT THIS DATE. PATIENT SEATED IN RECLINER UPON ARRIVAL AND DECLINED COMPLETE STANDING ACTIVITY THIS AM SECONDARY REPORTS TOO MUCH PAIN RUE WITH PATIENT REPORTING THAT NURSING IS AWARE. PATIENT AGREEABLE TO COMPLETING RUE AROM OF HAND FLEXION/EXTENSION AND DIGIT ABD/ADD WITH LIMITED MOTION DEMONSTRATED X 10 REPS EACH. PATIENT DECLINED ELOW ROM STATING THAT SHE HAD TOO MUCH PAIN. PATIENT ASSISTED WITH USE PILLOW FOR SUPPORT TO PROMOTE PROPER BODY ALIGNMENT WITH BREAKFAST TRAY ARRIVING. PATIENT ASSISTED WITH SET UP OF BREAKFAST TRAY. CALL LIGHT WITH REACH. NO FURTHER NEEDS VERBALIZED. CONTINUE TOWARDS PLAN OF CARE. MADDY FUENTES/Juliet
[2019-02-21 10:16] LABS: INTERNATIONAL NORM RATIO 2.6 (2.0-3.5)
--- NOTE | 2019-02-21 11:07 | NUR ---
Spoke to patient regarding speaking ot her sister. She states she has tried to reach her but her line is busy. She will keep trying. digital sales planner notified.
[2019-02-21 12:00] VITALS: BP 116/55
--- NOTE | 2019-02-21 12:20 | NUR ---
Patient is [facility]. transportation scheduled with [place] at 2PM. [place], nursing and son Renny all notified.
--- NOTE | 2019-02-21 13:14 | NUR ---
PHYSICAL THERAPY CO-SIGN I approve of the Physical Therapy notes written above. BRAYDEN ARAUJO PT,DPT
--- NOTE | 2019-02-21 14:44 | NUR ---
Discharge instructions reviewed with patient/family. Patient receptive and verbalizes understanding. Follow-up care arranged. Written instructions given to patient/family. TYSON MONZON
--- NOTE | 2019-02-24 12:26 | NUR ---
OCCUPATIONAL THERAPY CO-SIGN I approve of the Occupational Therapy notes written above. NIGHAT BUSTOS OTR/Juliet
== END 2019-02-21 14:44 | disposition other institution (70) | DRG 563 ==
LOC: ED 22:40 → 4E 02-18 01:18 → EDHOLD 02-18 01:18 → 4E 02-18 01:49
PROVIDERS: Nurse Practitioner Family; ADMIT Internal Medicine
PROC: 2W3AX1Z Immobilization of Right Upper Arm using Splint (ICD-10-PCS; principal; 2019-02-18)
DX: S42.211A Unspecified displaced fracture of surgical neck of right humerus, initial encounter for closed fracture (principal); I42.9 Cardiomyopathy, unspecified; S00.83XA Contusion of other part of head, initial encounter; I48.0 Paroxysmal atrial fibrillation; W01.0XXA Fall on same level from slipping, tripping and stumbling without subsequent striking against object, initial encounter; I12.9 Hypertensive chronic kidney disease with stage 1 through stage 4 chronic kidney disease, or unspecified chronic kidney disease; R62.7 Adult failure to thrive; J44.9 Chronic obstructive pulmonary disease, unspecified; N18.3 Chronic kidney disease, stage 3 (moderate); I48.2 Chronic atrial fibrillation; Z90.49 Acquired absence of other specified parts of digestive tract; Z90.710 Acquired absence of both cervix and uterus; Z88.2 Allergy status to sulfonamides; Z88.5 Allergy status to narcotic agent; Z88.8 Allergy status to other drugs, medicaments and biological substances; Z80.42 Family history of malignant neoplasm of prostate; Z82.0 Family history of epilepsy and other diseases of the nervous system; Y93.9 Activity, unspecified; Y92.89 Other specified places as the place of occurrence of the external cause; Y99.8 Other external cause status; Z68.31 Body mass index [BMI] 31.0-31.9, adult

== ENCOUNTER → 2019-03-03 | Outpatient (CLI) | payer MEDICARE ==
[~2019-03-03] MED LIST changes: +ALLOPURINOL100 MG PO; +HYDROMORPHONE2 MG PO
== END | disposition home or self-care (01) ==
LOC: ORTHO 01:19
DX: S42.301A Unspecified fracture of shaft of humerus, right arm, initial encounter for closed fracture (principal); X58.XXXA Exposure to other specified factors, initial encounter; Y93.89 Activity, other specified; Y92.89 Other specified places as the place of occurrence of the external cause; Y99.8 Other external cause status

== ENCOUNTER → 2019-03-31 | Outpatient (CLI) | payer MEDICARE | END | disposition home or self-care (01) | LOC: ORTHO 00:27 | DX: S42.291D Other displaced fracture of upper end of right humerus, subsequent encounter for fracture with routine healing (principal); X58.XXXD Exposure to other specified factors, subsequent encounter ==

== ENCOUNTER → 2019-04-28 | Outpatient (CLI) | payer MEDICARE ==
[2019-04-28 15:44] LABS: INTERNATIONAL NORM RATIO 3.3 (2.0-3.5)
== END | disposition home or self-care (01) ==
LOC: LAB 14:46
PROVIDERS: Family Medicine
DX: I48.91 Unspecified atrial fibrillation (principal); Z79.01 Long term (current) use of anticoagulants